=== PATIENT | female | born 1940 | race African-American/Black ===

== ENCOUNTER 2016-12-31 17:45 | Emergency (ER) | payer OTHER, MEDICAID ==
[~2016-12-31] VITALS: Ht 157.5 cm; Wt 100.0 kg
[~2016-12-31 17:45] MED LIST: AMLO10TA80 PO; ASPI-1159 PO; ATEN50TA PO; AZIT250T6 PO; OMEP20TA2 PO; P20 PO
[2016-12-31] MEDS ORDERED: IPRATROPIUM BROMIDE (0.02%) 0.5MG/2.5ML NEB HHN STA (19:36)
[2016-12-31] MEDS ORDERED: PREDNISONE 20MG TABLET PO STA (19:36)
[2016-12-31 20:38] LABS: BASOPHILS % 0.7 % (0.0-2.0); EOSINOPHILS % 3.1 % (0.0-5.0); HEMATOCRIT. 30.8 % (36.0-48.0); HEMOGLOBIN. 9.9 g/dL (12.0-16.0); LYMPHOCYTES % 11.7 % (20.0-50.0); MEAN CORPUSCULAR HEMOGLOBIN 24.8 pg (28.0-32.0); MEAN CORPUSCULAR VOLUME 77.1 fL (81.0-99.0); MEAN PLATELET VOLUME 8.7 fl (7.4-10.4); MONOCYTES % 6.4 % (2.0-8.0); NEUTROPHILS % 78.1 % (40.0-76.0); PLATELET 315 x1000/uL (130-400); PROTHROMBIN TIME 10.6 sec (9.4-11.6); RED BLOOD CELL COUNT 3.99 mill/uL (4.2-5.4); RED CELL DISTRIBUTION WIDTH 16.7 % (11.6-14.6)
[2016-12-31 20:45] LABS: CARBON DIOXIDE 31 mEq/L (21-32); CHLORIDE 102 mEq/L (98-107)
[2016-12-31 20:48] LABS: TROPONIN I < 0.02 ng/mL (0.00-0.04)
[2016-12-31] MEDS: ALBUTEROL (0.083%) 2.5MG/3ML NEB HHN SCH ×3 (22:10→23:05)
[2016-12-31 23:24] VITALS: BP 173/100
[2016-12-31] MEDS ORDERED: MAGNESIUM/ALUMINUM HYDROXIDE/SIMETHICONE 30ML UDC PO STA (23:28)
[2016-12-31] MEDS ORDERED: FAMOTIDINE 20MG TABLET PO ONE (23:30)
[2017-02-08] MEDS ORDERED: LEVO500T2 PO (19:03)
== END 2017-01-01 00:03 | disposition home or self-care (01) ==
LOC: ER 21:11
DX: I13.0 Hypertensive heart and chronic kidney disease with heart failure and stage 1 through stage 4 chronic kidney disease, or unspecified chronic kidney disease (principal); E11.649 Type 2 diabetes mellitus with hypoglycemia without coma; R60.0 Localized edema; E11.22 Type 2 diabetes mellitus with diabetic chronic kidney disease; G62.9 Polyneuropathy, unspecified; K21.9 Gastro-esophageal reflux disease without esophagitis; J44.9 Chronic obstructive pulmonary disease, unspecified; F41.9 Anxiety disorder, unspecified; M19.90 Unspecified osteoarthritis, unspecified site; G47.33 Obstructive sleep apnea (adult) (pediatric); D72.829 Elevated white blood cell count, unspecified; N18.9 Chronic kidney disease, unspecified; R91.1 Solitary pulmonary nodule; Z79.82 Long term (current) use of aspirin; Z88.8 Allergy status to other drugs, medicaments and biological substances
CPT/HCPCS: 36415; 71010; 80053; 82962; 83880; 84484; 85025; 85610; 93005; 94640; 99285; J7512; J7611

== ENCOUNTER 2017-01-04 03:40 | Inpatient (IN) | payer OTHER, MEDICAID ==
[2017-01-04] VITALS (8 sets, daily range): BP systolic 139–150; BP diastolic 64–80
[~2017-01-04] VITALS: Ht 162.6 cm; Wt 111.6 kg
[2017-01-04] MEDS ORDERED: ONDANSETRON HCL 4MG/2ML VIAL IV STA (03:47)
[2017-01-04] MEDS ORDERED: FUROSEMIDE 40MG/4ML VIAL IV ONE (04:00)
[2017-01-04] MEDS ORDERED: NITROGLYCERIN OINT 1GM/INCH UDPKT TD ONE (04:00)
[2017-01-04 04:25] LABS: PROTHROMBIN TIME 10.6 sec (9.4-11.6)
[2017-01-04 04:26] LABS: HEMATOCRIT. 30.4 % (36.0-48.0); HEMOGLOBIN. 9.5 g/dL (12.0-16.0); MEAN CORPUSCULAR HEMOGLOBIN 24.2 pg (28.0-32.0); MEAN CORPUSCULAR VOLUME 77.1 fL (81.0-99.0); MEAN PLATELET VOLUME 8.4 fl (7.4-10.4); PLATELET 371 x1000/uL (130-400); RED BLOOD CELL COUNT 3.94 mill/uL (4.2-5.4); RED CELL DISTRIBUTION WIDTH 16.7 % (11.6-14.6)
[2017-01-04 04:34] LABS: CARBON DIOXIDE 32 mEq/L (21-32); CHLORIDE 101 mEq/L (98-107); TROPONIN I < 0.02 ng/mL (0.00-0.04)
[2017-01-04 04:48] LABS: BG BASE EXCESS 1.6 mmol/L (-2.0-2.0); BG BILEVEL POS AIRWAY PRESSURE 15/6; BG CARBOXYHEMOGLOBIN 0.4 % (0.5-1.5); BG DEOXYHEMOGLOBIN 4.2 % (0.0-5.0); BG FRACTION INSPIRED OXYGEN 50; BG METHEMOGLOBIN 0.3 % (0.0-1.5); BG OXYGEN SATURATION 95.8 % (92.0-98.5); BG OXYHEMOGLOBIN 95.1 % (94.0-97.0); BG PCO2 69.4 mmHg (35.0-45.0); BG PH 7.254 (7.350-7.450); BG PO2 91.5 mmHg (75.0-100.0); BG SAMPLE SITE RIGHT RADIAL; BG TOTAL HEMOGLOBIN 10.4 g/dL (12.0-18.0); BG VENT MODE MASK - BIPAP; BG VENT RATE 18 set
[2017-01-04 05:27] LABS: PLATELET ESTIMATE NORMAL
[2017-01-04] MEDS ORDERED: PIPERACILLIN/TAZ 3.375G PREMIX 50 ML IV SCH ×2 (07:15→13:00)
[2017-01-04] MEDS ORDERED: IPRATROPIUM/ALBUTEROL 0.5-3(2.5)MG/3ML NEB INH PRN (13:00)
[2017-01-04] MEDS ORDERED: METHYLPREDNISOLONE SOD SUCC 40 MG/ML VIAL IV SCH (13:00)
[2017-01-04] MEDS ORDERED: ACETAMINOPHEN 325MG TABLET PO PRN (13:00)
[2017-01-04] MEDS ORDERED: VANCOMYCIN 1 G PREMIX 200 ML IV SCH (13:00)
[2017-01-04] MEDS: FUROSEMIDE 40MG/4ML VIAL IV SCH (14:12)
[2017-01-04] MEDS: ENOXAPARIN 40MG/0.4ML SYR SUBCUT SCH (14:12)
[2017-01-04] MEDS ORDERED: VANCOMYCIN 2,000 MG in DEXT 5% WATER 500 ML IV SCH (15:00)
[2017-01-04] MEDS: PIPERACILLIN/TAZ 3.375G PREMIX 50 ML IV SCH ×2 (15:27→21:14)
[2017-01-04 16:17] LABS: CREATINE KINASE 132 IU/L (26-192); TROPONIN I < 0.02 ng/mL (0.00-0.04)
[2017-01-04 16:28] LABS: BG BASE EXCESS 4.1 mmol/L (-2.0-2.0); BG BILEVEL POS AIRWAY PRESSURE ST=15/6; BG CARBOXYHEMOGLOBIN 0.3 % (0.5-1.5); BG FRACTION INSPIRED OXYGEN 50; BG METHEMOGLOBIN 0.2 % (0.0-1.5); BG OXYHEMOGLOBIN 95.5 % (94.0-97.0); BG PCO2 68.8 mmHg (35.0-45.0); BG PH 7.286 (7.350-7.450); BG PO2 87.7 mmHg (75.0-100.0); BG PRESSURE SUPPORT 9; BG SAMPLE SITE RIGHT RADIAL; BG VENT MODE MASK - BIPAP; BG VENT RATE 18 set
[2017-01-04] MEDS: METHYLPREDNISOLONE SOD SUCC 40 MG/ML VIAL IV SCH (21:14)
[2017-01-04 23:08] LABS: CREATINE KINASE 116 IU/L (26-192); TROPONIN I < 0.02 ng/mL (0.00-0.04)
[2017-01-05] VITALS (15 sets, daily range): BP systolic 125–164; BP diastolic 55–79
[2017-01-05] MEDS: HYDROCODONE/ACETAMINOPHEN 5/325MG TABLET PO PRN (00:09)
[2017-01-05] MEDS: PIPERACILLIN/TAZ 3.375G PREMIX 50 ML IV SCH ×2 (05:59→14:59)
[2017-01-05 06:23] LABS: CARBON DIOXIDE 28 mEq/L (21-32); CHLORIDE 95 mEq/L (98-107); HDL CHOLESTEROL 47 mg/dL (40-59); LDL CHOLESTEROL 69 mg/dL (5-100)
[2017-01-05] MEDS: FUROSEMIDE 40MG/4ML VIAL IV SCH (08:22)
[2017-01-05] MEDS: METHYLPREDNISOLONE SOD SUCC 40 MG/ML VIAL IV SCH ×2 (08:22→20:42)
[2017-01-05] MEDS: ENOXAPARIN 40MG/0.4ML SYR SUBCUT SCH (08:23)
[2017-01-05 08:40] LABS: HEMATOCRIT. 27.1 % (36.0-48.0); HEMOGLOBIN. 8.5 g/dL (12.0-16.0); MEAN CORPUSCULAR HEMOGLOBIN 24.3 pg (28.0-32.0); MEAN CORPUSCULAR VOLUME 77.8 fL (81.0-99.0); MEAN PLATELET VOLUME 8.7 fl (7.4-10.4); RED BLOOD CELL COUNT 3.49 mill/uL (4.2-5.4); RED CELL DISTRIBUTION WIDTH 16.9 % (11.6-14.6)
[2017-01-05 08:46] LABS: PLATELET 298 x1000/uL (130-400)
[2017-01-05] MEDS ORDERED: VANCOMYCIN 750 MG PREMIX 150 ML IV SCH (09:00)
[2017-01-05 10:24] LABS: PLATELET ESTIMATE NORMAL
[2017-01-05] MEDS: FUROSEMIDE 40MG/4ML VIAL IVP SCH (16:25)
[2017-01-05] MEDS: LEVOFLOXACIN 250MG PREMIX 50 ML IV SCH (16:27)
[2017-01-05] MEDS ORDERED: DEXTROSE 50% WATER 50ML SYRINGE IV PRN (18:00)
[2017-01-05] MEDS: INSULIN LISPRO 100 UNITS/ML SUBCUT SCH ×2 (18:10→20:43)
[2017-01-05] MEDS: BLOOD SUGAR DIAGNOSTIC STRIP TEST SCH (20:42)
[2017-01-05] MEDS ORDERED: BLOOD SUGAR DIAGNOSTIC STRIP TEST SCH (21:00)
[2017-01-05] MEDS ORDERED: BLOOD SUGAR DIAGNOSTIC STRIP TEST ONE (21:00)
[2017-01-05] MEDS: PIPERACILLIN/TAZ 2.25G PREMIX 50 ML IV SCH (21:45)
[2017-01-06] VITALS (16 sets, daily range): BP systolic 142–175; BP diastolic 59–84
[2017-01-06] MEDS: PIPERACILLIN/TAZ 2.25G PREMIX 50 ML IV SCH ×3 (05:24→21:31)
[2017-01-06 05:57] LABS: CARBON DIOXIDE 33 mEq/L (21-32); CHLORIDE 96 mEq/L (98-107)
[2017-01-06 06:16] LABS: HEMATOCRIT. 26.5 % (36.0-48.0); HEMOGLOBIN. 8.3 g/dL (12.0-16.0); MEAN CORPUSCULAR HEMOGLOBIN 24.3 pg (28.0-32.0); MEAN CORPUSCULAR VOLUME 77.7 fL (81.0-99.0); MEAN PLATELET VOLUME 8.9 fl (7.4-10.4); PLATELET 300 x1000/uL (130-400); RED BLOOD CELL COUNT 3.41 mill/uL (4.2-5.4); RED CELL DISTRIBUTION WIDTH 16.7 % (11.6-14.6)
[2017-01-06] MEDS: BLOOD SUGAR DIAGNOSTIC STRIP TEST SCH ×4 (07:49→21:31)
[2017-01-06] MEDS: ENOXAPARIN 40MG/0.4ML SYR SUBCUT SCH (07:58)
[2017-01-06] MEDS: FUROSEMIDE 40MG/4ML VIAL IVP SCH (07:58)
[2017-01-06] MEDS: METHYLPREDNISOLONE SOD SUCC 40 MG/ML VIAL IV SCH ×2 (07:59→17:47)
[2017-01-06] MEDS: INSULIN LISPRO 100 UNITS/ML SUBCUT SCH ×4 (08:01→21:43)
[2017-01-06] MEDS ORDERED: DEXTROSE 50% WATER 50ML SYRINGE IV PRN (09:15)
[2017-01-06] MEDS ORDERED: SODIUM POLYSTYRENE SULFONATE 15 G/60 ML BOT PO NR (09:15)
[2017-01-06] MEDS ORDERED: VANCOMYCIN 1 G PREMIX 200 ML IV NR (10:00)
[2017-01-06] MEDS: CLONIDINE 0.1MG TABLET PO PRN ×3 (10:15→21:30)
[2017-01-06] MEDS: INSULIN DETEMIR UD 100 UNITS/ML SYR SUBCUT SCH (10:16)
[2017-01-06] MEDS ORDERED: BLOOD SUGAR DIAGNOSTIC STRIP TEST SCH (12:30)
[2017-01-06 13:40] LABS: PLATELET ESTIMATE NORMAL
[2017-01-06] MEDS: LEVOFLOXACIN 250MG PREMIX 50 ML IV SCH (16:00)
[2017-01-07] VITALS (12 sets, daily range): BP systolic 155–197; BP diastolic 70–97
[2017-01-07] MEDS: HYDROCODONE/ACETAMINOPHEN 5/325MG TABLET PO PRN (01:55)
[2017-01-07] MEDS: PIPERACILLIN/TAZ 2.25G PREMIX 50 ML IV SCH ×3 (03:09→14:58)
[2017-01-07] MEDS: CLONIDINE 0.1MG TABLET PO PRN (03:31)
[2017-01-07] MEDS: BLOOD SUGAR DIAGNOSTIC STRIP TEST SCH ×3 (07:30→17:15)
[2017-01-07 07:34] LABS: HEMATOCRIT. 29.8 % (36.0-48.0); HEMOGLOBIN. 9.4 g/dL (12.0-16.0); MEAN CORPUSCULAR HEMOGLOBIN 24.7 pg (28.0-32.0); MEAN PLATELET VOLUME 8.5 fl (7.4-10.4); PLATELET 298 x1000/uL (130-400); RED BLOOD CELL COUNT 3.82 mill/uL (4.2-5.4); RED CELL DISTRIBUTION WIDTH 16.5 % (11.6-14.6)
[2017-01-07] MEDS: ENOXAPARIN 40MG/0.4ML SYR SUBCUT SCH (08:23)
[2017-01-07] MEDS: METHYLPREDNISOLONE SOD SUCC 40 MG/ML VIAL IV SCH (08:23)
[2017-01-07] MEDS: INSULIN LISPRO 100 UNITS/ML SUBCUT SCH ×3 (08:25→17:15)
[2017-01-07] MEDS ORDERED: FUROSEMIDE 40MG/4ML VIAL IVP SCH (09:00)
[2017-01-07] MEDS: INSULIN DETEMIR UD 100 UNITS/ML SYR SUBCUT SCH (10:51)
[2017-01-07 16:22] LABS: PLATELET ESTIMATE NORMAL
[2017-01-07] MEDS: LEVOFLOXACIN 250MG PREMIX 50 ML IV SCH (16:32)
[2017-01-07] MEDS ORDERED: FUROSEMIDE 40MG/4ML VIAL IVP NR (17:45)
[2017-02-08] MEDS ORDERED: LEVO500T2 PO (19:03)
== END 2017-01-07 21:48 | disposition home or self-care (01) | DRG 291 ==
LOC: ER 03:44 → 5EST 05:25 → EDBEDREQ 05:55 → EDBEDREQSVC 07:52 → ENRESERV 08:04
PROVIDERS: ADMIT Internal Medicine; ATTEND Internal Medicine
PROC: 30233N1 Transfusion of Nonautologous Red Blood Cells into Peripheral Vein, Percutaneous Approach (ICD-10-PCS; principal; 2017-01-04)
PROC: 5A09457 Assistance with Respiratory Ventilation, 24-96 Consecutive Hours, Continuous Positive Airway Pressure (ICD-10-PCS; 2017-01-04)
DX: I13.0 Hypertensive heart and chronic kidney disease with heart failure and stage 1 through stage 4 chronic kidney disease, or unspecified chronic kidney disease (principal); J96.90 Respiratory failure, unspecified, unspecified whether with hypoxia or hypercapnia; J18.9 Pneumonia, unspecified organism; E11.22 Type 2 diabetes mellitus with diabetic chronic kidney disease; N18.3 Chronic kidney disease, stage 3 (moderate); J44.0 Chronic obstructive pulmonary disease with (acute) lower respiratory infection; Z68.41 Body mass index [BMI] 40.0-44.9, adult; J44.1 Chronic obstructive pulmonary disease with (acute) exacerbation; I50.9 Heart failure, unspecified; E66.9 Obesity, unspecified; E78.00 Pure hypercholesterolemia, unspecified; M19.90 Unspecified osteoarthritis, unspecified site; Z88.8 Allergy status to other drugs, medicaments and biological substances; Z79.82 Long term (current) use of aspirin; Z79.899 Other long term (current) drug therapy
CPT/HCPCS: 36415; 36600; 71010; 80048; 80053; 80061; 80202; 82375; 82550; 82805; 82962; 83605; 83880; 84439; 84443; 84484; 85025; 85044; 85610; 86850; 86900; 86920; 87040; 93005; 93306; 94660; 96365; 96375; 99291; J1650; J1815; J1940; J1956; J2405; J2543; J2920; J3370; J7050; J7060; J7620; P9016; A4315

== ENCOUNTER 2018-03-31 09:08 | Inpatient (IN) | payer OTHER, MEDICAID ==
[~2018-03-31] VITALS: Ht 158.8 cm; Wt 97.1 kg
[~2018-03-31 09:08] MED LIST changes: -ATEN50TA PO; +ATOR20TA65 PO; -AZIT250T6 PO; +HYDR-4134 PO; +HYDR-519 PO; -P20 PO
[2018-03-31] MEDS ORDERED: ALBUTEROL (0.083%) 2.5MG/3ML NEB HHN STA (09:39)
[2018-03-31] MEDS ORDERED: IPRATROPIUM BROMIDE (0.02%) 0.5MG/2.5ML NEB HHN STA (09:39)
[2018-03-31] MEDS ORDERED: METHYLPREDNISOLONE SOD SUCC 125 MG/2 ML VIAL IV STA (09:39)
[2018-03-31] MEDS ORDERED: MAGNESIUM 2 G PREMIX 50 ML IV ONE (09:45)
[2018-03-31 09:56] LABS: BASOPHILS % 0.7 % (0.0-2.0); EOSINOPHILS % 2.8 % (0.0-5.0); HEMATOCRIT. 30.7 % (36.0-48.0); HEMOGLOBIN. 9.6 g/dL (12.0-16.0); LYMPHOCYTES % 18.2 % (20.0-50.0); MEAN CORPUSCULAR HEMOGLOBIN 25.2 pg (28.0-32.0); MEAN CORPUSCULAR VOLUME 80.2 fL (81.0-99.0); MEAN PLATELET VOLUME 9.5 fl (7.4-10.4); MONOCYTES % 6.3 % (2.0-8.0); PLATELET 316 x1000/uL (130-400); RED BLOOD CELL COUNT 3.83 mill/uL (4.2-5.4); RED CELL DISTRIBUTION WIDTH 16.5 % (11.6-14.6)
[2018-03-31 09:57] LABS: CHLORIDE 103 mEq/L (98-107)
[2018-03-31] MEDS ORDERED: FUROSEMIDE 40MG/4ML VIAL IVP ONE (11:00)
[2018-03-31 12:15] VITALS: BP 157/62
[2018-03-31] MEDS ORDERED: IPRATROPIUM/ALBUTEROL 0.5-3(2.5)MG/3ML NEB INH PRN (12:30)
[2018-03-31] MEDS ORDERED: ONDANSETRON HCL 4MG/2ML INJ IV PRN (12:30)
[2018-03-31] MEDS ORDERED: ACETAMINOPHEN 325MG TABLET PO PRN (12:30)
[2018-03-31] MEDS ORDERED: DOCU-138 MT (13:01)
[2018-03-31] MEDS ORDERED: INSNPH SUBCUT ×2 (13:12)
[2018-03-31] MEDS: AMLODIPINE 10MG TABLET PO SCH (13:39)
[2018-03-31] MEDS: METHYLPREDNISOLONE SOD SUCC 40 MG/ML VIAL IV SCH ×2 (13:39→21:38)
[2018-03-31] MEDS: FUROSEMIDE 40MG/4ML VIAL IV SCH (13:39)
[2018-03-31] MEDS: HYDROCODONE/ACETAMINOPHEN 5/325MG TABLET PO PRN (13:39)
[2018-03-31] MEDS: ASPIRIN 81MG TABLET PO SCH (13:39)
[2018-03-31] MEDS: ENOXAPARIN 40MG/0.4ML SYR SUBCUT SCH (13:40)
[2018-03-31 14:00] VITALS: BP 172/66
[2018-03-31] MEDS ORDERED: LEVOFLOXACIN 500MG PREMIX 100 ML IV SCH (14:00)
[2018-03-31] MEDS: HYDRALAZINE HCL 50MG TABLET PO SCH ×2 (14:50→16:55)
[2018-03-31 16:00] VITALS: BP 155/63
[2018-03-31] MEDS ORDERED: DEXTROSE 50% WATER 50ML SYRINGE IV PRN (16:00)
[2018-03-31] MEDS: DOCUSATE SODIUM 100MG CAPSULE PO SCH (16:54)
[2018-03-31] MEDS: BLOOD SUGAR DIAGNOSTIC STRIP TEST SCH ×2 (16:55→20:47)
[2018-03-31] MEDS: INSULIN LISPRO 100 UNITS/ML SUBCUT SCH ×2 (17:16→20:54)
[2018-03-31 18:00] VITALS: BP 157/57
[2018-03-31] MEDS: CLONIDINE 0.1MG TABLET PO PRN ×2 (18:21→21:39)
[2018-03-31 20:00] VITALS: BP 154/58
[2018-03-31 20:27] LABS: CREATINE KINASE MB FRACTION 1.6 ng/mL (0.5-3.6)
[2018-03-31 20:30] LABS: CREATINE KINASE 112 IU/L (26-192); CREATINE KINASE MB FRACTION 1.6 ng/mL (0.5-3.6)
[2018-03-31] MEDS: ATORVASTATIN CALCIUM 20MG TABLET PO SCH (20:47)
[2018-03-31 22:00] VITALS: BP 173/63
[2018-04-01] VITALS (12 sets, daily range): BP systolic 145–172; BP diastolic 55–78
[2018-04-01] MEDS: CLONIDINE 0.1MG TABLET PO PRN ×2 (04:29→21:46)
[2018-04-01] MEDS: METHYLPREDNISOLONE SOD SUCC 40 MG/ML VIAL IV SCH ×3 (06:11→21:48)
[2018-04-01 06:35] LABS: HEMATOCRIT. 25.6 % (36.0-48.0); HEMOGLOBIN. 8.4 g/dL (12.0-16.0); MEAN CORPUSCULAR VOLUME 79.7 fL (81.0-99.0); MEAN PLATELET VOLUME 8.9 fl (7.4-10.4); PLATELET 270 x1000/uL (130-400); RED BLOOD CELL COUNT 3.21 mill/uL (4.2-5.4)
[2018-04-01 07:12] LABS: CHLORIDE 99 mEq/L (98-107)
[2018-04-01 07:30] LABS: LDL CHOLESTEROL 50 mg/dL (5-100)
[2018-04-01 07:32] LABS: HDL CHOLESTEROL 55 mg/dL (40-59); T4 FREE 0.82 ng/dL (0.76-1.46)
[2018-04-01] MEDS: BLOOD SUGAR DIAGNOSTIC STRIP TEST SCH ×4 (07:57→21:47)
[2018-04-01] MEDS: THIAMINE HCL 100MG TABLET PO SCH (08:39)
[2018-04-01] MEDS: ASPIRIN 81MG TABLET PO SCH (08:39)
[2018-04-01] MEDS: AMLODIPINE 10MG TABLET PO SCH (08:39)
[2018-04-01] MEDS: HYDRALAZINE HCL 50MG TABLET PO SCH ×3 (08:39→17:31)
[2018-04-01] MEDS: FUROSEMIDE 40MG/4ML VIAL IV SCH (08:39)
[2018-04-01] MEDS: DOCUSATE SODIUM 100MG CAPSULE PO SCH ×2 (08:39→17:00)
[2018-04-01] MEDS: INSULIN LISPRO 100 UNITS/ML SUBCUT SCH ×4 (08:41→22:07)
[2018-04-01 10:45] LABS: PLATELET ESTIMATE NORMAL
[2018-04-01] MEDS ORDERED: HYDRALAZINE HCL 50MG TABLET PO SCH (13:00)
[2018-04-01] MEDS ORDERED: LEVOFLOXACIN 250MG PREMIX 50 ML IV SCH (14:00)
[2018-04-01] MEDS: ENOXAPARIN 40MG/0.4ML SYR SUBCUT SCH (14:02)
[2018-04-01] MEDS: ATORVASTATIN CALCIUM 20MG TABLET PO SCH (21:46)
[2018-04-01] MEDS: ENOXAPARIN 30MG/0.3ML SYR SUBCUT SCH (21:48)
[2018-04-02] VITALS (9 sets, daily range): BP systolic 152–176; BP diastolic 46–101
[2018-04-02] MEDS: METHYLPREDNISOLONE SOD SUCC 40 MG/ML VIAL IV SCH ×2 (05:35→13:00)
[2018-04-02] MEDS: HYDROCODONE/ACETAMINOPHEN 5/325MG TABLET PO PRN ×2 (05:36→14:25)
[2018-04-02] MEDS: BLOOD SUGAR DIAGNOSTIC STRIP TEST SCH ×2 (07:30→12:52)
[2018-04-02] MEDS: ENOXAPARIN 30MG/0.3ML SYR SUBCUT SCH (09:16)
[2018-04-02] MEDS: AMLODIPINE 10MG TABLET PO SCH (09:18)
[2018-04-02] MEDS: DOCUSATE SODIUM 100MG CAPSULE PO SCH (09:19)
[2018-04-02] MEDS: ASPIRIN 81MG TABLET PO SCH (09:19)
[2018-04-02] MEDS: HYDRALAZINE HCL 50MG TABLET PO SCH ×2 (09:19→12:54)
[2018-04-02] MEDS: THIAMINE HCL 100MG TABLET PO SCH (09:19)
[2018-04-02] MEDS: INSULIN LISPRO 100 UNITS/ML SUBCUT SCH ×2 (09:24→12:55)
[2018-04-02] MEDS: FUROSEMIDE 40MG/4ML VIAL IV SCH (09:52)
[2018-04-02] MEDS: CLONIDINE 0.1MG TABLET PO PRN (14:37)
[2018-04-03] MEDS ORDERED: LEVOFLOXACIN 500MG PREMIX 100 ML IV SCH (09:00)
== END 2018-04-02 16:34 | disposition home or self-care (01) | DRG 190 ==
LOC: ER 09:08 → 5EST 11:04 → EDBEDREQTM 11:09 → EDBEDREQ 11:09 → ENRESERV 11:19 → ER 12:26
PROVIDERS: ADMIT Internal Medicine; ATTEND Internal Medicine
PROC: 5A09457 Assistance with Respiratory Ventilation, 24-96 Consecutive Hours, Continuous Positive Airway Pressure (ICD-10-PCS; principal; 2018-03-31)
DX: J44.1 Chronic obstructive pulmonary disease with (acute) exacerbation (principal); J96.90 Respiratory failure, unspecified, unspecified whether with hypoxia or hypercapnia; I50.30 Unspecified diastolic (congestive) heart failure; I11.0 Hypertensive heart disease with heart failure; E11.9 Type 2 diabetes mellitus without complications; Z99.81 Dependence on supplemental oxygen; E78.5 Hyperlipidemia, unspecified
CPT/HCPCS: 36415; 71045; 80061; 82550; 82553; 82962; 83880; 84439; 84443; 84484; 87804; 93005; 93306; 93970; 94660; 96365; 96366; 96375; 97116; 97162; 97166; 97530; 97535; 99291; J1650; J1815; J1940; J1956; J2920; J2930; J3475; J7050; J7611

== ENCOUNTER 2018-05-09 13:21 | Emergency (ER) | payer OTHER, MEDICAID ==
[~2018-05-09] VITALS: Ht 167.6 cm; Wt 106.0 kg
[~2018-05-09 13:21] MED LIST changes: +DOCU-138 MT; +INSNPH SUBCUT; -OMEP20TA2 PO
[2018-05-09 14:27] LABS: HEMATOCRIT. 33.5 % (36.0-48.0); HEMOGLOBIN. 10.6 g/dL (12.0-16.0); LYMPHOCYTES % 11.8 % (20.0-50.0); MEAN CORPUSCULAR HEMOGLOBIN 25.5 pg (28.0-32.0); MEAN CORPUSCULAR VOLUME 80.2 fL (81.0-99.0); MEAN PLATELET VOLUME 8.6 fl (7.4-10.4); MONOCYTES % 5.5 % (2.0-8.0); NEUTROPHILS % 80.7 % (40.0-76.0); PLATELET 410 x1000/uL (130-400); RED BLOOD CELL COUNT 4.17 mill/uL (4.2-5.4)
[2018-05-09] MEDS ORDERED: CLONIDINE 0.1MG TABLET PO ONE (14:30)
[2018-05-09 14:32] LABS: CHLORIDE 101 mEq/L (98-107)
[2018-05-09 15:54] LABS: PARTIAL THROMBOPLASTIN TIME 27.6 sec (23.4-31.0)
[2018-05-09 18:30] VITALS: BP 171/85
== END 2018-05-09 19:10 | disposition left against medical advice (07) ==
LOC: ER 13:21 → ENRESERV 14:30 → CANRESERV 14:30 → CANBEDREQ 15:32 → ER 19:10
DX: I11.0 Hypertensive heart disease with heart failure (principal); I50.9 Heart failure, unspecified; R07.9 Chest pain, unspecified; J44.9 Chronic obstructive pulmonary disease, unspecified; E11.9 Type 2 diabetes mellitus without complications; Z88.8 Allergy status to other drugs, medicaments and biological substances; Z79.899 Other long term (current) drug therapy; Z87.891 Personal history of nicotine dependence
CPT/HCPCS: 36415; 71045; 83880; 84484; 93005; 99284

== ENCOUNTER 2018-06-25 12:40 | Inpatient (IN) | payer OTHER, MEDICAID ==
[~2018-06-25] VITALS: Ht 157.5 cm; Wt 97.5 kg
[2018-06-25 13:49] LABS: HEMATOCRIT. 31.8 % (36.0-48.0); HEMOGLOBIN. 9.8 g/dL (12.0-16.0); MEAN CORPUSCULAR HEMOGLOBIN 23.7 pg (28.0-32.0); MEAN CORPUSCULAR VOLUME 76.9 fL (81.0-99.0); MEAN PLATELET VOLUME 8.1 fl (7.4-10.4); PLATELET 338 x1000/uL (130-400); RED BLOOD CELL COUNT 4.14 mill/uL (4.2-5.4); RED CELL DISTRIBUTION WIDTH 17.1 % (11.6-14.6)
[2018-06-25 13:52] LABS: CHLORIDE 102 mEq/L (98-107)
[2018-06-25 14:02] LABS: PLATELET ESTIMATE NORMAL
[2018-06-25] MEDS ORDERED: ALBUTEROL (0.083%) 2.5MG/3ML NEB HHN STA (14:28)
[2018-06-25] MEDS ORDERED: IPRATROPIUM BROMIDE (0.02%) 0.5MG/2.5ML NEB HHN STA (14:28)
[2018-06-25] MEDS ORDERED: METHYLPREDNISOLONE SOD SUCC 125 MG/2 ML VIAL IV STA (14:28)
[2018-06-25] MEDS ORDERED: CEFTRIAXONE 1 G PREMIX 50 ML IV ONE (14:30)
[2018-06-25] MEDS ORDERED: AZITHROMYCIN 500 MG in DEXT 5% WATER 250 ML IV SCH (14:30)
[2018-06-25] MEDS ORDERED: FUROSEMIDE 20MG/2ML VIAL IVP ONE (15:00)
[2018-06-25] MEDS ORDERED: NITROGLYCERIN OINT 1GM/INCH UDPKT TD ONE (15:00)
[2018-06-25] MEDS ORDERED: IPRATROPIUM/ALBUTEROL 0.5-3(2.5)MG/3ML NEB INH PRN (16:45)
[2018-06-25] MEDS ORDERED: ACETAMINOPHEN 650MG/20.3ML UDC GT PRN (16:45)
[2018-06-25] MEDS ORDERED: HYDROCODONE/ACETAMINOPHEN 5/325MG TABLET PO PRN (16:45)
[2018-06-25] MEDS ORDERED: ONDANSETRON HCL 4MG/2ML INJ IV PRN (16:45)
[2018-06-25] MEDS ORDERED: ENOXAPARIN 40MG/0.4ML SYR SUBCUT NR (17:45)
[2018-06-25] MEDS ORDERED: LEVOFLOXACIN 500MG PREMIX 100 ML IV SCH (20:15)
[2018-06-25] MEDS: CLONIDINE 0.1MG TABLET PO PRN (22:08)
[2018-06-25] MEDS ORDERED: INSULIN LISPRO 100 UNITS/ML SUBCUT NR (23:15)
[2018-06-26 00:15] VITALS: BP 129/81
[2018-06-26] MEDS ORDERED: DEXTROSE 50% WATER 50ML SYRINGE IV PRN (01:00)
[2018-06-26] MEDS: INSULIN LISPRO 100 UNITS/ML SUBCUT SCH ×4 (01:17→17:38)
[2018-06-26] MEDS ORDERED: BLOOD SUGAR DIAGNOSTIC STRIP TEST NR (01:45)
[2018-06-26 04:30] VITALS: BP 163/60
[2018-06-26] MEDS: CLONIDINE 0.1MG TABLET PO PRN ×2 (05:10→17:28)
[2018-06-26] MEDS: BLOOD SUGAR DIAGNOSTIC STRIP TEST SCH ×3 (05:23→18:01)
[2018-06-26 08:00] VITALS: BP 104/56
[2018-06-26 08:59] LABS: HEMATOCRIT. 28.3 % (36.0-48.0); HEMOGLOBIN. 8.9 g/dL (12.0-16.0); MEAN CORPUSCULAR HEMOGLOBIN 24.2 pg (28.0-32.0); MEAN CORPUSCULAR VOLUME 76.9 fL (81.0-99.0); MEAN PLATELET VOLUME 8.9 fl (7.4-10.4); PLATELET 315 x1000/uL (130-400); RED BLOOD CELL COUNT 3.68 mill/uL (4.2-5.4); RED CELL DISTRIBUTION WIDTH 17.1 % (11.6-14.6)
[2018-06-26] MEDS ORDERED: ENOXAPARIN 30MG/0.3ML SYR SUBCUT SCH (09:00)
[2018-06-26 09:27] LABS: CHLORIDE 99 mEq/L (98-107)
[2018-06-26 09:38] LABS: HDL CHOLESTEROL 79 mg/dL (40-59); LDL CHOLESTEROL 55 mg/dL (5-100); T4 FREE 0.71 ng/dL (0.76-1.46)
[2018-06-26 11:34] LABS: BG BASE EXCESS 3.8 mmol/L (-2.0-2.0); BG CARBOXYHEMOGLOBIN 0.1 % (0.5-1.5); BG DEOXYHEMOGLOBIN 8.5 % (0.0-5.0); BG HCO3 ACT 29.4 mmol/L (22.0-26.0); BG METHEMOGLOBIN 0.2 % (0.0-1.5); BG OXYGEN SATURATION 91.5 % (92.0-98.5); BG OXYHEMOGLOBIN 91.2 % (94.0-97.0); BG PCO2 49.5 mmHg (35.0-45.0); BG PH 7.392 (7.350-7.450); BG PO2 62.6 mmHg (75.0-100.0); BG SAMPLE SITE RIGHT RADIAL; BG VENT MODE ROOM AIR
[2018-06-26 12:00] VITALS: BP 157/71
[2018-06-26 13:54] LABS: PLATELET ESTIMATE NORMAL
[2018-06-26] MEDS ORDERED: INSULIN GLARGINE UD 100 UNITS/ML SYR SUBCUT SCH (14:00)
[2018-06-26 16:00] VITALS: BP 169/68
[2018-06-26] MEDS ORDERED: AMLODIPINE 5MG TABLET PO SCH (16:00)
[2018-06-26 16:19] LABS: TOTAL IRON BINDING CAPACITY 292 ug/dL (250-450)
[2018-06-26 18:10] VITALS: BP_SYST 160; BP_SYST 169; BP_DIAS 58; BP_DIAS 68
[2018-06-26] MEDS ORDERED: LEVOFLOXACIN 500MG PREMIX 100 ML IV SCH (21:00)
[2018-06-26] MEDS ORDERED: LEVOFLOXACIN 250MG PREMIX 50 ML IV SCH (22:00)
== END 2018-06-26 19:10 | disposition home or self-care (01) | DRG 190 ==
LOC: ER 12:40 → 8WST 15:04 → EDBEDREQ 15:41 → ENRESERV 22:33
PROVIDERS: ADMIT Internal Medicine; ATTEND Internal Medicine
DX: J44.1 Chronic obstructive pulmonary disease with (acute) exacerbation (principal); I50.33 Acute on chronic diastolic (congestive) heart failure; N17.9 Acute kidney failure, unspecified; I11.0 Hypertensive heart disease with heart failure; D72.829 Elevated white blood cell count, unspecified; D64.9 Anemia, unspecified; E11.65 Type 2 diabetes mellitus with hyperglycemia; E78.00 Pure hypercholesterolemia, unspecified; E66.8 Other obesity; I27.20 Pulmonary hypertension, unspecified; T50.2X5A Adverse effect of carbonic-anhydrase inhibitors, benzothiadiazides and other diuretics, initial encounter; F19.90 Other psychoactive substance use, unspecified, uncomplicated; Y92.89 Other specified places as the place of occurrence of the external cause; Z99.81 Dependence on supplemental oxygen; Z68.39 Body mass index [BMI] 39.0-39.9, adult; I07.1 Rheumatic tricuspid insufficiency
CPT/HCPCS: 36415; 36600; 71045; 80061; 82375; 82550; 82805; 82962; 83036; 83540; 83550; 83880; 84439; 84443; 84484; 87804; 93005; 94640; 96365; 96367; 96375; 99291; J0456; J0696; J1650; J1815; J1940; J1956; J2930; J7060; J7611

== ENCOUNTER 2018-06-27 11:30 | Inpatient (IN) | payer OTHER, MEDICAID ==
[~2018-06-27] VITALS: Ht 165.1 cm; Wt 91.7 kg
[2018-06-27] MEDS ORDERED: METHYLPREDNISOLONE SOD SUCC 125 MG/2 ML VIAL IV STA (11:59)
[2018-06-27] MEDS ORDERED: IPRATROPIUM BROMIDE (0.02%) 0.5MG/2.5ML NEB HHN STA (11:59)
[2018-06-27] MEDS ORDERED: ALBUTEROL (0.083%) 2.5MG/3ML NEB HHN STA (11:59)
[2018-06-27] MEDS ORDERED: FUROSEMIDE 40MG/4ML VIAL IVP ONE (12:00)
[2018-06-27] MEDS ORDERED: MAGNESIUM 2 G PREMIX 50 ML IV ONE (12:00)
[2018-06-27 12:10] LABS: HEMATOCRIT. 30.2 % (36.0-48.0); HEMOGLOBIN. 9.1 g/dL (12.0-16.0); MEAN CORPUSCULAR HEMOGLOBIN 23.4 pg (28.0-32.0); MEAN CORPUSCULAR VOLUME 77.6 fL (81.0-99.0); MEAN PLATELET VOLUME 8.8 fl (7.4-10.4); PLATELET 352 x1000/uL (130-400); RED BLOOD CELL COUNT 3.89 mill/uL (4.2-5.4); RED CELL DISTRIBUTION WIDTH 17.1 % (11.6-14.6)
[2018-06-27 12:16] LABS: CHLORIDE 101 mEq/L (98-107)
[2018-06-27 12:20] LABS: PROTHROMBIN TIME 9.6 sec (9.1-11.1)
[2018-06-27 12:35] LABS: PLATELET ESTIMATE NORMAL
[2018-06-27] MEDS ORDERED: NITROGLYCERIN OINT 1GM/INCH UDPKT TD ONE (13:00)
[2018-06-27] MEDS ORDERED: HYDRALAZINE 20MG/ML VIAL IV ONE (13:00)
[2018-06-27 13:17] LABS: CLARITY URINE CLEAR (CLEAR); COLOR URINE YELLOW (YELLOW); KETONES URINE NEGATIVE (NEGATIVE); LEUKOCYTE ESTERASE URINE NEGATIVE (NEGATIVE); NITRITE URINE NEGATIVE (NEGATIVE); OCCULT BLOOD URINE NEGATIVE (NEGATIVE); PROTEIN URINE 2+ (NEGATIVE); SPECIFIC GRAVITY URINE 1.012 (1.005-1.030); UROBILINOGEN URINE 0.2 E.U./dL (0.2-1.0)
[2018-06-27] MEDS ORDERED: MORPHINE SULFATE 4 MG/ML CPJ (NOT FOR IM USE) IV SCH (14:00)
[2018-06-27] MEDS ORDERED: ACETAMINOPHEN 650MG SUPP PR PRN (16:30)
[2018-06-27] MEDS ORDERED: ONDANSETRON HCL 4MG/2ML INJ IV PRN (16:30)
[2018-06-27] MEDS ORDERED: IPRATROPIUM/ALBUTEROL 0.5-3(2.5)MG/3ML NEB INH PRN (16:30)
[2018-06-27] MEDS ORDERED: LORAZEPAM 0.5MG TABLET PO PRN (16:30)
[2018-06-27] MEDS ORDERED: GUAIFENESIN 200MG/10ML SUGAR FREE UDC PO PRN (16:30)
[2018-06-27] MEDS ORDERED: DOCUSATE SODIUM 100MG CAPSULE PO PRN (16:30)
[2018-06-27] MEDS ORDERED: LEVOFLOXACIN 500MG PREMIX 100 ML IV SCH (16:30)
[2018-06-27] MEDS ORDERED: NA PHOS,M-B/NA PHOS,DI-BA ENEMA 118ML PR PRN (16:30)
[2018-06-27] MEDS ORDERED: DEXTROSE 50% WATER 50ML SYRINGE IV PRN (16:30)
[2018-06-27] MEDS ORDERED: DIPHENHYDRAMINE 50MG/ML VIAL IV PRN (16:30)
[2018-06-27] MEDS ORDERED: LEVOFLOXACIN 500MG PREMIX 100 ML IV NR (17:15)
[2018-06-27] MEDS ORDERED: INSULIN GLARGINE UD 100 UNITS/ML SYR SUBCUT SCH (22:00)
[2018-06-27] MEDS ORDERED: HYDRALAZINE HCL 25MG TABLET PO NR (22:15)
[2018-06-27] MEDS ORDERED: METHYLPREDNISOLONE SOD SUCC 125 MG/2 ML VIAL IV NR (22:30)
[2018-06-27] MEDS ORDERED: DILTIAZEM HCL 30MG TABLET PO NR (23:45)
[2018-06-27] MEDS ORDERED: ATORVASTATIN CALCIUM 20MG TABLET PO NR (23:45)
[2018-06-28] VITALS (11 sets, daily range): BP systolic 151–190; BP diastolic 67–89
[2018-06-28 00:23] LABS: CREATINE KINASE MB FRACTION 3.1 ng/mL (0.5-3.6)
[2018-06-28] MEDS: CLONIDINE 0.1MG TABLET PO PRN ×2 (05:18→21:05)
[2018-06-28] MEDS ORDERED: METHYLPREDNISOLONE SOD SUCC 40 MG/ML VIAL IV SCH (06:00)
[2018-06-28] MEDS ORDERED: DILTIAZEM HCL 30MG TABLET PO SCH (06:00)
[2018-06-28] MEDS: BLOOD SUGAR DIAGNOSTIC STRIP TEST SCH ×4 (06:08→21:06)
[2018-06-28] MEDS: HYDROCODONE/ACETAMINOPHEN 5/325MG TABLET PO PRN (06:18)
[2018-06-28] MEDS: NITROGLYCERIN 0.4MG TABLET SL SL PRN ×2 (06:18→06:25)
[2018-06-28 06:22] LABS: *AMPHETAMINES SCREEN URINE NEGATIVE (NEGATIVE); *BARBITURATES SCREEN URINE NEGATIVE (NEGATIVE); *BENZODIAZEPINES SCREEN URINE NEGATIVE (NEGATIVE); *COCAINE SCREEN URINE NEGATIVE (NEGATIVE); CANNABINOID URINE SCREEN NEGATIVE (NEGATIVE); METHADONE URINE SCREEN NEGATIVE (NEGATIVE); OPIATES URINE SCREEN PRESUMTIVE POSITIVE (NEGATIVE); PHENCYCLIDINE URINE SCREEN NEGATIVE (NEGATIVE)
[2018-06-28 08:18] LABS: HEMATOCRIT. 27.2 % (36.0-48.0); HEMOGLOBIN. 8.6 g/dL (12.0-16.0); MEAN CORPUSCULAR HEMOGLOBIN 24.2 pg (28.0-32.0); MEAN PLATELET VOLUME 8.9 fl (7.4-10.4); PLATELET 292 x1000/uL (130-400); RED BLOOD CELL COUNT 3.54 mill/uL (4.2-5.4); RED CELL DISTRIBUTION WIDTH 17.2 % (11.6-14.6)
[2018-06-28 08:29] LABS: CHLORIDE 99 mEq/L (98-107)
[2018-06-28] MEDS: IPRATROPIUM/ALBUTEROL 0.5-3(2.5)MG/3ML NEB INH SCH ×4 (08:36→20:08)
[2018-06-28 08:37] LABS: LDL CHOLESTEROL 54 mg/dL (5-100)
[2018-06-28 08:38] LABS: CREATINE KINASE 105 IU/L (26-192)
[2018-06-28 08:41] LABS: CREATINE KINASE MB FRACTION 2.4 ng/mL (0.5-3.6)
[2018-06-28] MEDS: ASPIRIN 81MG TABLET PO SCH (08:44)
[2018-06-28] MEDS: DOCUSATE SODIUM 100MG CAPSULE PO SCH ×2 (08:44→18:04)
[2018-06-28] MEDS: INSULIN LISPRO 100 UNITS/ML SUBCUT SCH ×4 (08:45→21:06)
[2018-06-28 08:47] LABS: HDL CHOLESTEROL 73 mg/dL (40-59)
[2018-06-28] MEDS ORDERED: HYDRALAZINE HCL 25MG TABLET PO SCH (09:00)
[2018-06-28] MEDS ORDERED: INSULIN GLARGINE UD 100 UNITS/ML SYR SUBCUT SCH ×2 (10:00→10:30)
[2018-06-28] MEDS: INSULIN GLARGINE UD 100 UNITS/ML SYR SUBCUT SCH ×2 (11:10→21:08)
[2018-06-28 11:24] LABS: PLATELET ESTIMATE NORMAL
[2018-06-28] MEDS: DILTIAZEM HCL 30MG TABLET PO SCH ×3 (13:18→23:11)
[2018-06-28 14:20] LABS: BG BASE EXCESS 3.4 mmol/L (-2.0-2.0); BG CARBOXYHEMOGLOBIN 0.3 % (0.5-1.5); BG DEOXYHEMOGLOBIN 2.8 % (0.0-5.0); BG HCO3 ACT 28.4 mmol/L (22.0-26.0); BG METHEMOGLOBIN 0.1 % (0.0-1.5); BG OXYGEN SATURATION 97.2 % (92.0-98.5); BG OXYHEMOGLOBIN 96.8 % (94.0-97.0); BG PCO2 45.3 mmHg (35.0-45.0); BG PH 7.415 (7.350-7.450); BG PO2 99.8 mmHg (75.0-100.0); BG SAMPLE SITE RIGHT RADIAL; BG TOTAL HEMOGLOBIN 9.1 g/dL (12.0-18.0); BG VENT MODE NASAL CANNULA
[2018-06-28] MEDS: FUROSEMIDE 40MG/4ML VIAL IVP SCH (14:43)
[2018-06-28] MEDS: HYDRALAZINE HCL 50MG TABLET PO SCH ×2 (14:44→21:04)
[2018-06-28] MEDS: ATORVASTATIN CALCIUM 20MG TABLET PO SCH (21:04)
[2018-06-28] MEDS: METHYLPREDNISOLONE SOD SUCC 40 MG/ML VIAL IV SCH (21:04)
[2018-06-28] MEDS: LEVOFLOXACIN 250MG PREMIX 50 ML IV SCH (21:05)
[2018-06-29] VITALS (7 sets, daily range): BP systolic 130–169; BP diastolic 53–98
[2018-06-29] MEDS: IPRATROPIUM/ALBUTEROL 0.5-3(2.5)MG/3ML NEB INH SCH ×6 (00:13→21:14)
[2018-06-29] MEDS: DILTIAZEM HCL 30MG TABLET PO SCH (05:18)
[2018-06-29] MEDS: HYDRALAZINE HCL 50MG TABLET PO SCH (05:18)
[2018-06-29] MEDS: BLOOD SUGAR DIAGNOSTIC STRIP TEST SCH ×4 (06:19→21:45)
[2018-06-29] MEDS: INSULIN LISPRO 100 UNITS/ML SUBCUT SCH ×4 (06:35→21:43)
[2018-06-29 08:19] LABS: HEMOGLOBIN 8.1 g/dL (12.0-16.0); MEAN CORPUSCULAR HEMOGLOBIN 23.9 pg (28.0-32.0); MEAN CORPUSCULAR VOLUME 76.8 fL (81.0-99.0); PLATELET 285 x1000/uL (130-400); RED BLOOD CELL COUNT 3.38 mill/uL (4.2-5.4); RED CELL DISTRIBUTION WIDTH 17.1 % (11.6-14.6)
[2018-06-29] MEDS: CLONIDINE 0.1MG TABLET PO PRN (09:08)
[2018-06-29] MEDS: FUROSEMIDE 40MG/4ML VIAL IVP SCH ×2 (09:09→17:51)
[2018-06-29] MEDS: DOCUSATE SODIUM 100MG CAPSULE PO SCH ×2 (09:09→17:51)
[2018-06-29] MEDS: ASPIRIN 81MG TABLET PO SCH (09:09)
[2018-06-29] MEDS: METHYLPREDNISOLONE SOD SUCC 40 MG/ML VIAL IV SCH (09:09)
[2018-06-29] MEDS: INSULIN GLARGINE UD 100 UNITS/ML SYR SUBCUT SCH ×2 (09:45→21:44)
[2018-06-29] MEDS ORDERED: INSULIN GLARGINE UD 100 UNITS/ML SYR SUBCUT NR ×2 (11:30→18:30)
[2018-06-29] MEDS: NIFEDIPINE XL 90MG TAB PO SCH (11:59)
[2018-06-29] MEDS: HYDRALAZINE HCL 100MG TABLET PO SCH ×2 (14:35→21:40)
[2018-06-29] MEDS: HYDROCODONE/ACETAMINOPHEN 5/325MG TABLET PO PRN (14:36)
[2018-06-29] MEDS: NITROGLYCERIN 0.4MG TABLET SL SL PRN (15:47)
[2018-06-29] MEDS ORDERED: NITROGLYCERIN OINT 1GM/INCH UDPKT TD NR (16:00)
[2018-06-29] MEDS ORDERED: MORPHINE SULFATE 4 MG/ML CPJ (NOT FOR IM USE) IV NR (16:00)
[2018-06-29] MEDS: LEVOFLOXACIN 250MG PREMIX 50 ML IV SCH (17:52)
[2018-06-29] MEDS: ATORVASTATIN CALCIUM 20MG TABLET PO SCH (21:40)
[2018-06-29] MEDS ORDERED: INSULIN GLARGINE UD 100 UNITS/ML SYR SUBCUT SCH (22:00)
[2018-06-30] VITALS: BP 139/66
[2018-06-30] MEDS: NITROGLYCERIN 0.4MG TABLET SL SL PRN ×3 (02:42→09:00)
[2018-06-30] MEDS: MAGNESIUM/ALUMINUM HYDROXIDE/SIMETHICONE 30ML UDC PO PRN (02:45)
[2018-06-30] MEDS: HYDROCODONE/ACETAMINOPHEN 5/325MG TABLET PO PRN ×2 (03:21→08:52)
[2018-06-30 04:00] VITALS: BP 148/51
[2018-06-30] MEDS: HYDRALAZINE HCL 100MG TABLET PO SCH ×3 (05:21→21:41)
[2018-06-30] MEDS: IPRATROPIUM/ALBUTEROL 0.5-3(2.5)MG/3ML NEB INH SCH ×5 (05:40→20:42)
[2018-06-30 07:13] LABS: HEMATOCRIT. 29.7 % (36.0-48.0); HEMOGLOBIN. 9.1 g/dL (12.0-16.0); MEAN CORPUSCULAR HEMOGLOBIN 23.9 pg (28.0-32.0); MEAN CORPUSCULAR VOLUME 78.4 fL (81.0-99.0); MEAN PLATELET VOLUME 9.3 fl (7.4-10.4); PLATELET 305 x1000/uL (130-400); RED BLOOD CELL COUNT 3.79 mill/uL (4.2-5.4); RED CELL DISTRIBUTION WIDTH 17.4 % (11.6-14.6)
[2018-06-30 08:00] VITALS: BP 171/64
[2018-06-30] MEDS: DOCUSATE SODIUM 100MG CAPSULE PO SCH ×2 (09:02→17:55)
[2018-06-30] MEDS: NIFEDIPINE XL 90MG TAB PO SCH (09:03)
[2018-06-30] MEDS: ASPIRIN 81MG TABLET PO SCH (09:03)
[2018-06-30] MEDS: METHYLPREDNISOLONE SOD SUCC 40 MG/ML VIAL IV SCH (09:04)
[2018-06-30] MEDS: INSULIN GLARGINE UD 100 UNITS/ML SYR SUBCUT SCH ×2 (10:35→21:53)
[2018-06-30 10:44] LABS: PLATELET ESTIMATE NORMAL
[2018-06-30 12:00] VITALS: BP 179/68
[2018-06-30] MEDS ORDERED: MORPHINE SULFATE 4 MG/ML CPJ (NOT FOR IM USE) IV NR (12:30)
[2018-06-30] MEDS: CLONIDINE 0.1MG TABLET PO PRN (12:45)
[2018-06-30] MEDS: BLOOD SUGAR DIAGNOSTIC STRIP TEST SCH ×3 (12:47→21:00)
[2018-06-30] MEDS ORDERED: INSULIN LISPRO 100 UNITS/ML SUBCUT NR (13:11)
[2018-06-30] MEDS: INSULIN LISPRO 100 UNITS/ML SUBCUT SCH ×3 (13:18→21:52)
[2018-06-30] MEDS: SILDENAFIL CITRATE 20MG TABLET PO SCH ×2 (15:05→21:39)
[2018-06-30 16:00] VITALS: BP 163/79
[2018-06-30] MEDS: FUROSEMIDE 40MG/4ML VIAL IVP SCH (17:54)
[2018-06-30] MEDS: LEVOFLOXACIN 250MG PREMIX 50 ML IV SCH (18:12)
[2018-06-30 20:00] VITALS: BP 160/63
[2018-06-30] MEDS: ATORVASTATIN CALCIUM 20MG TABLET PO SCH (21:37)
[2018-06-30] MEDS: NIFEDIPINE XL 60MG TAB PO SCH (21:40)
[2018-07-01] VITALS: BP 145/71
[2018-07-01] MEDS: IPRATROPIUM/ALBUTEROL 0.5-3(2.5)MG/3ML NEB INH SCH ×6 (00:17→20:13)
[2018-07-01] MEDS: LORAZEPAM 0.5MG TABLET PO PRN ×2 (01:00→05:01)
[2018-07-01 04:00] VITALS: BP 159/62
[2018-07-01] MEDS: ACETAMINOPHEN 325MG TABLET PO PRN (05:01)
[2018-07-01] MEDS: SILDENAFIL CITRATE 20MG TABLET PO SCH ×3 (05:02→21:43)
[2018-07-01] MEDS: HYDRALAZINE HCL 100MG TABLET PO SCH ×3 (05:02→21:32)
[2018-07-01] MEDS: MAGNESIUM/ALUMINUM HYDROXIDE/SIMETHICONE 30ML UDC PO PRN (05:06)
[2018-07-01] MEDS: BLOOD SUGAR DIAGNOSTIC STRIP TEST SCH ×4 (06:16→21:00)
[2018-07-01] MEDS: FUROSEMIDE 40MG/4ML VIAL IVP SCH (06:19)
[2018-07-01] MEDS: INSULIN LISPRO 100 UNITS/ML SUBCUT SCH ×4 (06:20→21:05)
[2018-07-01 06:32] LABS: HEMATOCRIT. 27.9 % (36.0-48.0); HEMOGLOBIN. 8.7 g/dL (12.0-16.0); MEAN CORPUSCULAR VOLUME 76.7 fL (81.0-99.0); MEAN PLATELET VOLUME 9.2 fl (7.4-10.4); PLATELET 369 x1000/uL (130-400); RED BLOOD CELL COUNT 3.64 mill/uL (4.2-5.4); RED CELL DISTRIBUTION WIDTH 16.9 % (11.6-14.6)
[2018-07-01 08:00] VITALS: BP 150/52
[2018-07-01] MEDS: ASPIRIN 81MG TABLET PO SCH (08:27)
[2018-07-01] MEDS: METHYLPREDNISOLONE SOD SUCC 40 MG/ML VIAL IV SCH (08:27)
[2018-07-01] MEDS: DOCUSATE SODIUM 100MG CAPSULE PO SCH ×2 (08:28→16:47)
[2018-07-01] MEDS: HYDROCODONE/ACETAMINOPHEN 5/325MG TABLET PO PRN ×2 (08:29→13:36)
[2018-07-01] MEDS: NIFEDIPINE XL 60MG TAB PO SCH ×2 (08:29→21:02)
[2018-07-01] MEDS: INSULIN GLARGINE UD 100 UNITS/ML SYR SUBCUT SCH ×2 (09:38→21:38)
[2018-07-01] MEDS ORDERED: POTASSIUM CHLORIDE 20MEQ TABLET SR PO NR (11:15)
[2018-07-01] MEDS ORDERED: MAGNESIUM/ALUMINUM HYDROXIDE/SIMETHICONE 30ML UDC PO PRN (11:30)
[2018-07-01 12:00] VITALS: BP 127/58
[2018-07-01 13:15] LABS: BG BASE EXCESS 4.8 mmol/L (-2.0-2.0); BG BILEVEL POS AIRWAY PRESSURE 15/5; BG CARBOXYHEMOGLOBIN 0.1 % (0.5-1.5); BG DEOXYHEMOGLOBIN 2.2 % (0.0-5.0); BG FRACTION INSPIRED OXYGEN 60; BG HCO3 ACT 29.1 mmol/L (22.0-26.0); BG METHEMOGLOBIN 0.4 % (0.0-1.5); BG OXYGEN SATURATION 97.8 % (92.0-98.5); BG OXYHEMOGLOBIN 97.3 % (94.0-97.0); BG PCO2 42.2 mmHg (35.0-45.0); BG PH 7.457 (7.350-7.450); BG SAMPLE SITE RIGHT BRACHIAL; BG TOTAL HEMOGLOBIN 9.2 g/dL (12.0-18.0); BG VENT MODE MASK - BIPAP
[2018-07-01] MEDS: CLONIDINE 0.1MG TABLET PO SCH ×2 (13:29→21:32)
[2018-07-01] MEDS: PANTOPRAZOLE 40MG DR TABLET PO SCH (13:37)
[2018-07-01 14:00] LABS: PLATELET ESTIMATE NORMAL
[2018-07-01 16:00] VITALS: BP 156/56
[2018-07-01] MEDS ORDERED: LORAZEPAM 0.5MG TABLET PO PRN (16:30)
[2018-07-01] MEDS: LEVOFLOXACIN 250MG PREMIX 50 ML IV SCH (17:49)
[2018-07-01 20:00] VITALS: BP 187/70
[2018-07-01] MEDS: BUDESONIDE 0.5MG/2ML NEB HHN SCH (20:14)
[2018-07-01] MEDS: ATORVASTATIN CALCIUM 20MG TABLET PO SCH (21:02)
[2018-07-02] VITALS (9 sets, daily range): BP systolic 143–169; BP diastolic 53–82
[2018-07-02] MEDS: IPRATROPIUM/ALBUTEROL 0.5-3(2.5)MG/3ML NEB INH SCH ×6 (00:18→20:02)
[2018-07-02] MEDS: CLONIDINE 0.1MG TABLET PO SCH ×3 (06:00→23:31)
[2018-07-02 06:24] LABS: HEMATOCRIT. 23.4 % (36.0-48.0); HEMOGLOBIN. 7.4 g/dL (12.0-16.0); MEAN CORPUSCULAR HEMOGLOBIN 24.1 pg (28.0-32.0); MEAN CORPUSCULAR VOLUME 75.9 fL (81.0-99.0); MEAN PLATELET VOLUME 9.7 fl (7.4-10.4); PLATELET 233 x1000/uL (130-400); RED BLOOD CELL COUNT 3.08 mill/uL (4.2-5.4); RED CELL DISTRIBUTION WIDTH 17.4 % (11.6-14.6)
[2018-07-02] MEDS: HYDRALAZINE HCL 100MG TABLET PO SCH ×3 (06:37→21:38)
[2018-07-02] MEDS: SILDENAFIL CITRATE 20MG TABLET PO SCH ×3 (06:37→21:39)
[2018-07-02] MEDS: PANTOPRAZOLE 40MG DR TABLET PO SCH (06:37)
[2018-07-02] MEDS: BLOOD SUGAR DIAGNOSTIC STRIP TEST SCH ×5 (06:40→23:10)
[2018-07-02] MEDS: INSULIN LISPRO 100 UNITS/ML SUBCUT SCH ×4 (06:47→21:40)
[2018-07-02] MEDS: METHYLPREDNISOLONE SOD SUCC 40 MG/ML VIAL IV SCH (09:03)
[2018-07-02] MEDS: DOCUSATE SODIUM 100MG CAPSULE PO SCH ×2 (09:03→18:37)
[2018-07-02] MEDS: ASPIRIN 81MG TABLET PO SCH (09:03)
[2018-07-02] MEDS: NIFEDIPINE XL 60MG TAB PO SCH ×2 (09:03→21:38)
[2018-07-02] MEDS: HYDROCODONE/ACETAMINOPHEN 5/325MG TABLET PO PRN ×2 (09:07→23:31)
[2018-07-02 09:56] LABS: PLATELET ESTIMATE NORMAL
[2018-07-02] MEDS: INSULIN GLARGINE UD 100 UNITS/ML SYR SUBCUT SCH ×2 (10:00→21:40)
[2018-07-02 12:02] LABS: BG BASE EXCESS 8.1 mmol/L (-2.0-2.0); BG BILEVEL POS AIRWAY PRESSURE ST=15/5; BG CARBOXYHEMOGLOBIN 0.1 % (0.5-1.5); BG DEOXYHEMOGLOBIN 6.2 % (0.0-5.0); BG FRACTION INSPIRED OXYGEN 40; BG HCO3 ACT 32.3 mmol/L (22.0-26.0); BG METHEMOGLOBIN 0.1 % (0.0-1.5); BG OXYGEN SATURATION 93.8 % (92.0-98.5); BG OXYHEMOGLOBIN 93.6 % (94.0-97.0); BG PCO2 43.4 mmHg (35.0-45.0); BG PH 7.489 (7.350-7.450); BG PO2 66.9 mmHg (75.0-100.0); BG SAMPLE SITE LEFT RADIAL; BG TOTAL HEMOGLOBIN 8.9 g/dL (12.0-18.0); BG VENT MODE MASK - BIPAP; BG VENT RATE 20 set
[2018-07-02] MEDS: FUROSEMIDE 40MG/4ML VIAL IVP SCH ×2 (14:05→21:37)
[2018-07-02] MEDS ORDERED: HYDROCODONE/ACETAMINOPHEN 5/325MG TABLET PO PRN (16:30)
[2018-07-02] MEDS: BUDESONIDE 0.5MG/2ML NEB HHN SCH ×2 (16:47→20:01)
[2018-07-02] MEDS: MEROPENEM 500 MG in SODIUM CHLORIDE 0.9% 50 ML IV SCH (18:37)
[2018-07-02] MEDS ORDERED: VANCOMYCIN 1 G PREMIX 200 ML IV SCH (20:00)
[2018-07-02] MEDS: ATORVASTATIN CALCIUM 20MG TABLET PO SCH (23:10)
[2018-07-03] VITALS (17 sets, daily range): BP systolic 144–184; BP diastolic 61–84
[2018-07-03] MEDS: IPRATROPIUM/ALBUTEROL 0.5-3(2.5)MG/3ML NEB INH SCH ×6 (00:22→20:27)
[2018-07-03] MEDS: CLONIDINE 0.1MG TABLET PO PRN (01:47)
[2018-07-03] MEDS: FUROSEMIDE 40MG/4ML VIAL IVP SCH ×2 (05:41→18:45)
[2018-07-03] MEDS: CLONIDINE 0.1MG TABLET PO SCH ×3 (05:41→21:48)
[2018-07-03] MEDS: HYDRALAZINE HCL 100MG TABLET PO SCH ×3 (05:41→21:48)
[2018-07-03] MEDS: SILDENAFIL CITRATE 20MG TABLET PO SCH ×3 (05:42→21:48)
[2018-07-03] MEDS: MEROPENEM 500 MG in SODIUM CHLORIDE 0.9% 50 ML IV SCH ×2 (05:43→18:46)
[2018-07-03 06:18] LABS: HEMATOCRIT 21.4 % (36.0-48.0); MEAN CORPUSCULAR HEMOGLOBIN 24.1 pg (28.0-32.0); MEAN CORPUSCULAR VOLUME 75.6 fL (81.0-99.0); PLATELET 247 x1000/uL (130-400); RED BLOOD CELL COUNT 2.84 mill/uL (4.2-5.4); RED CELL DISTRIBUTION WIDTH 17.2 % (11.6-14.6)
[2018-07-03 06:39] LABS: HEMOGLOBIN 6.8 g/dL (12.0-16.0)
[2018-07-03] MEDS: BLOOD SUGAR DIAGNOSTIC STRIP TEST SCH ×4 (07:38→21:47)
[2018-07-03] MEDS: FAMOTIDINE 20MG TABLET PO SCH (08:15)
[2018-07-03] MEDS: DOCUSATE SODIUM 100MG CAPSULE PO SCH ×2 (08:16→18:45)
[2018-07-03] MEDS: NIFEDIPINE XL 60MG TAB PO SCH ×2 (08:16→21:48)
[2018-07-03] MEDS: ASPIRIN 81MG TABLET PO SCH (08:16)
[2018-07-03] MEDS: METHYLPREDNISOLONE SOD SUCC 40 MG/ML VIAL IV SCH (08:16)
[2018-07-03] MEDS: INSULIN LISPRO 100 UNITS/ML SUBCUT SCH ×4 (08:17→21:50)
[2018-07-03 10:29] LABS: BG BASE EXCESS 10.7 mmol/L (-2.0-2.0); BG BILEVEL POS AIRWAY PRESSURE ST=15/5; BG CARBOXYHEMOGLOBIN 0.6 % (0.5-1.5); BG DEOXYHEMOGLOBIN 6.2 % (0.0-5.0); BG FRACTION INSPIRED OXYGEN 40; BG METHEMOGLOBIN 0.1 % (0.0-1.5); BG OXYGEN SATURATION 93.8 % (92.0-98.5); BG OXYHEMOGLOBIN 93.1 % (94.0-97.0); BG PCO2 46.3 mmHg (35.0-45.0); BG PH 7.496 (7.350-7.450); BG PO2 67.9 mmHg (75.0-100.0); BG PRESSURE SUPPORT 10; BG SAMPLE SITE LEFT RADIAL; BG VENT MODE MASK - BIPAP; BG VENT RATE 18 set
[2018-07-03] MEDS: INSULIN GLARGINE UD 100 UNITS/ML SYR SUBCUT SCH ×2 (10:45→21:50)
[2018-07-03] MEDS ORDERED: PANTOPRAZOLE 40MG DR TABLET PO SCH (11:30)
[2018-07-03 11:37] LABS: TOTAL IRON BINDING CAPACITY 252 ug/dL (250-450)
[2018-07-03] MEDS: BUDESONIDE 0.5MG/2ML NEB HHN SCH ×2 (12:28→20:28)
[2018-07-03] MEDS ORDERED: LACTULOSE 20G/30ML UDC PO NR (17:15)
[2018-07-03] MEDS ORDERED: SORBITOL 70% SOLN 30ML PO SCH (17:45)
[2018-07-03] MEDS: FERROUS SULFATE 325MG TABLET PO SCH (18:45)
[2018-07-03] MEDS: VANCOMYCIN 750 MG PREMIX 150 ML IV SCH (20:05)
[2018-07-03] MEDS: ATORVASTATIN CALCIUM 20MG TABLET PO SCH (21:48)
[2018-07-03 23:01] LABS: HEMATOCRIT 28.5 % (36.0-48.0); HEMOGLOBIN 9.1 g/dL (12.0-16.0)
[2018-07-03] MEDS: HYDROCODONE/ACETAMINOPHEN 5/325MG TABLET PO PRN (23:02)
[2018-07-04] VITALS (12 sets, daily range): BP systolic 149–165; BP diastolic 64–78
[2018-07-04] MEDS: IPRATROPIUM/ALBUTEROL 0.5-3(2.5)MG/3ML NEB INH SCH ×7 (00:09→23:57)
[2018-07-04] MEDS: MEROPENEM 500 MG in SODIUM CHLORIDE 0.9% 50 ML IV SCH ×2 (05:33→18:20)
[2018-07-04] MEDS: FUROSEMIDE 40MG/4ML VIAL IVP SCH ×2 (05:33→17:50)
[2018-07-04] MEDS: SILDENAFIL CITRATE 20MG TABLET PO SCH ×3 (05:34→21:52)
[2018-07-04] MEDS: HYDRALAZINE HCL 100MG TABLET PO SCH ×3 (05:34→21:52)
[2018-07-04] MEDS: CLONIDINE 0.1MG TABLET PO SCH ×3 (05:34→21:51)
[2018-07-04 06:50] LABS: BASOPHILS % 0.1 % (0.0-2.0); EOSINOPHILS % 0.9 % (0.0-5.0); HEMATOCRIT. 24.7 % (36.0-48.0); LYMPHOCYTES % 7.9 % (20.0-50.0); MEAN CORPUSCULAR HEMOGLOBIN 24.9 pg (28.0-32.0); MEAN CORPUSCULAR VOLUME 76.7 fL (81.0-99.0); MEAN PLATELET VOLUME 9.1 fl (7.4-10.4); MONOCYTES % 7.2 % (2.0-8.0); NEUTROPHILS % 83.9 % (40.0-76.0); PLATELET 254 x1000/uL (130-400); RED BLOOD CELL COUNT 3.22 mill/uL (4.2-5.4); RED CELL DISTRIBUTION WIDTH 16.9 % (11.6-14.6)
[2018-07-04] MEDS: BLOOD SUGAR DIAGNOSTIC STRIP TEST SCH ×4 (07:24→21:23)
[2018-07-04] MEDS: BUDESONIDE 0.5MG/2ML NEB HHN SCH ×2 (07:56→20:50)
[2018-07-04] MEDS: ASPIRIN 81MG TABLET PO SCH (08:25)
[2018-07-04] MEDS: DOCUSATE SODIUM 100MG CAPSULE PO SCH ×2 (08:33→17:50)
[2018-07-04] MEDS: FERROUS SULFATE 325MG TABLET PO SCH ×2 (08:33→17:50)
[2018-07-04] MEDS: FAMOTIDINE 20MG TABLET PO SCH (08:33)
[2018-07-04] MEDS: METHYLPREDNISOLONE SOD SUCC 40 MG/ML VIAL IV SCH (08:33)
[2018-07-04] MEDS: INSULIN LISPRO 100 UNITS/ML SUBCUT SCH ×4 (08:34→21:53)
[2018-07-04] MEDS: NIFEDIPINE XL 60MG TAB PO SCH ×2 (08:39→20:23)
[2018-07-04] MEDS: INSULIN GLARGINE UD 100 UNITS/ML SYR SUBCUT SCH ×2 (09:22→21:54)
[2018-07-04 12:38] LABS: HEMATOCRIT 28.3 % (36.0-48.0); HEMOGLOBIN 9.2 g/dL (12.0-16.0)
[2018-07-04] MEDS: ATORVASTATIN CALCIUM 20MG TABLET PO SCH (20:23)
[2018-07-04] MEDS: VANCOMYCIN 750 MG PREMIX 150 ML IV SCH (20:23)
[2018-07-05] VITALS (9 sets, daily range): BP systolic 101–162; BP diastolic 55–80
[2018-07-05] MEDS: IPRATROPIUM/ALBUTEROL 0.5-3(2.5)MG/3ML NEB INH SCH ×5 (03:55→21:11)
[2018-07-05] MEDS: MEROPENEM 500 MG in SODIUM CHLORIDE 0.9% 50 ML IV SCH ×2 (06:18→17:09)
[2018-07-05] MEDS: FUROSEMIDE 40MG/4ML VIAL IVP SCH ×2 (06:18→17:08)
[2018-07-05] MEDS: CLONIDINE 0.1MG TABLET PO SCH ×3 (06:19→21:45)
[2018-07-05] MEDS: SILDENAFIL CITRATE 20MG TABLET PO SCH ×3 (06:19→21:45)
[2018-07-05] MEDS: HYDRALAZINE HCL 100MG TABLET PO SCH ×3 (06:19→21:45)
[2018-07-05 07:14] LABS: HEMATOCRIT 25.4 % (36.0-48.0); MEAN CORPUSCULAR HEMOGLOBIN 24.4 pg (28.0-32.0); MEAN CORPUSCULAR VOLUME 77.3 fL (81.0-99.0); PLATELET 262 x1000/uL (130-400); RED BLOOD CELL COUNT 3.29 mill/uL (4.2-5.4); RED CELL DISTRIBUTION WIDTH 16.9 % (11.6-14.6)
[2018-07-05] MEDS: BLOOD SUGAR DIAGNOSTIC STRIP TEST SCH ×4 (07:30→21:45)
[2018-07-05] MEDS: INSULIN LISPRO 100 UNITS/ML SUBCUT SCH ×3 (08:00→22:19)
[2018-07-05] MEDS: NIFEDIPINE XL 60MG TAB PO SCH ×2 (09:00→21:44)
[2018-07-05] MEDS: FAMOTIDINE 20MG TABLET PO SCH (09:23)
[2018-07-05] MEDS: FERROUS SULFATE 325MG TABLET PO SCH (09:23)
[2018-07-05] MEDS: ASPIRIN 81MG TABLET PO SCH (09:23)
[2018-07-05] MEDS: DOCUSATE SODIUM 100MG CAPSULE PO SCH (09:23)
[2018-07-05] MEDS: PREDNISONE 20MG TABLET PO SCH (09:24)
[2018-07-05] MEDS: INSULIN GLARGINE UD 100 UNITS/ML SYR SUBCUT SCH ×2 (09:25→22:17)
[2018-07-05 10:57] LABS: BG BASE EXCESS 9.5 mmol/L (-2.0-2.0); BG BILEVEL POS AIRWAY PRESSURE 15/5; BG FRACTION INSPIRED OXYGEN 40; BG HCO3 ACT 33.8 mmol/L (22.0-26.0); BG METHEMOGLOBIN 0.3 % (0.0-1.5); BG OXYHEMOGLOBIN 96.7 % (94.0-97.0); BG PCO2 44.8 mmHg (35.0-45.0); BG PH 7.495 (7.350-7.450); BG PO2 96.2 mmHg (75.0-100.0); BG SAMPLE SITE RIGHT RADIAL; BG TOTAL HEMOGLOBIN 9.5 g/dL (12.0-18.0); BG VENT MODE MASK - BIPAP; BG VENT RATE 16 set
[2018-07-05] MEDS ORDERED: IRON SUCROSE COMPLEX 100 MG/5 ML ML IV SCH (12:30)
[2018-07-05] MEDS: ACETAMINOPHEN 325MG TABLET PO PRN ×2 (19:03→19:06)
[2018-07-05] MEDS: VANCOMYCIN 1 G PREMIX 200 ML IV SCH (21:44)
[2018-07-05] MEDS: ATORVASTATIN CALCIUM 20MG TABLET PO SCH (21:44)
[2018-07-06] VITALS (11 sets, daily range): BP systolic 143–167; BP diastolic 59–109
[2018-07-06] MEDS: IPRATROPIUM/ALBUTEROL 0.5-3(2.5)MG/3ML NEB INH SCH ×6 (00:17→20:20)
[2018-07-06] MEDS: FUROSEMIDE 40MG/4ML VIAL IVP SCH ×2 (05:41→21:15)
[2018-07-06] MEDS: HYDRALAZINE HCL 100MG TABLET PO SCH ×3 (05:41→21:14)
[2018-07-06] MEDS: MEROPENEM 500 MG in SODIUM CHLORIDE 0.9% 50 ML IV SCH ×2 (05:41→21:15)
[2018-07-06] MEDS: CLONIDINE 0.1MG TABLET PO SCH ×3 (05:41→21:31)
[2018-07-06] MEDS: SILDENAFIL CITRATE 20MG TABLET PO SCH ×3 (05:41→21:14)
[2018-07-06 06:33] LABS: HEMOGLOBIN 8.1 g/dL (12.0-16.0); MEAN CORPUSCULAR HEMOGLOBIN 24.9 pg (28.0-32.0); MEAN CORPUSCULAR VOLUME 77.1 fL (81.0-99.0); PLATELET 273 x1000/uL (130-400); RED BLOOD CELL COUNT 3.24 mill/uL (4.2-5.4); RED CELL DISTRIBUTION WIDTH 17.1 % (11.6-14.6)
[2018-07-06] MEDS: BLOOD SUGAR DIAGNOSTIC STRIP TEST SCH ×4 (07:30→21:18)
[2018-07-06] MEDS: INSULIN LISPRO 100 UNITS/ML SUBCUT SCH ×4 (09:38→21:28)
[2018-07-06] MEDS: FERROUS SULFATE 325MG TABLET PO SCH (09:39)
[2018-07-06] MEDS: ASPIRIN 81MG TABLET PO SCH (09:39)
[2018-07-06] MEDS: NIFEDIPINE XL 60MG TAB PO SCH ×2 (09:39→21:14)
[2018-07-06] MEDS: DOCUSATE SODIUM 100MG CAPSULE PO SCH ×2 (09:39→17:58)
[2018-07-06] MEDS: FAMOTIDINE 20MG TABLET PO SCH (09:39)
[2018-07-06] MEDS: PREDNISONE 20MG TABLET PO SCH (09:39)
[2018-07-06] MEDS: IRON SUCROSE COMPLEX 100 MG/5 ML ML IV SCH (09:40)
[2018-07-06] MEDS: INSULIN GLARGINE UD 100 UNITS/ML SYR SUBCUT SCH ×2 (11:19→21:28)
[2018-07-06] MEDS: AMLODIPINE 5MG TABLET PO SCH (11:20)
[2018-07-06] MEDS: ATORVASTATIN CALCIUM 20MG TABLET PO SCH (21:10)
[2018-07-06] MEDS: VANCOMYCIN 1 G PREMIX 200 ML IV SCH (22:42)
[2018-07-07] VITALS (20 sets, daily range): BP systolic 115–168; BP diastolic 59–92
[2018-07-07] MEDS: IPRATROPIUM/ALBUTEROL 0.5-3(2.5)MG/3ML NEB INH SCH ×6 (00:10→20:17)
[2018-07-07] MEDS: SILDENAFIL CITRATE 20MG TABLET PO SCH ×3 (05:48→21:07)
[2018-07-07] MEDS: CLONIDINE 0.1MG TABLET PO SCH ×3 (05:48→21:06)
[2018-07-07] MEDS: MEROPENEM 500 MG in SODIUM CHLORIDE 0.9% 50 ML IV SCH ×2 (05:48→18:14)
[2018-07-07] MEDS: HYDRALAZINE HCL 100MG TABLET PO SCH ×3 (05:48→21:06)
[2018-07-07] MEDS: FUROSEMIDE 40MG/4ML VIAL IVP SCH ×3 (05:48→21:07)
[2018-07-07 06:08] LABS: HEMATOCRIT 26.1 % (36.0-48.0); HEMOGLOBIN 8.4 g/dL (12.0-16.0); MEAN CORPUSCULAR HEMOGLOBIN 24.9 pg (28.0-32.0); MEAN CORPUSCULAR VOLUME 77.6 fL (81.0-99.0); PLATELET 296 x1000/uL (130-400); RED BLOOD CELL COUNT 3.37 mill/uL (4.2-5.4); RED CELL DISTRIBUTION WIDTH 17.1 % (11.6-14.6)
[2018-07-07] MEDS: BLOOD SUGAR DIAGNOSTIC STRIP TEST SCH ×4 (07:30→21:07)
[2018-07-07] MEDS: INSULIN LISPRO 100 UNITS/ML SUBCUT SCH ×4 (09:36→21:08)
[2018-07-07] MEDS: IRON SUCROSE COMPLEX 100 MG/5 ML ML IV SCH (09:37)
[2018-07-07] MEDS: NIFEDIPINE XL 60MG TAB PO SCH ×2 (09:37→21:07)
[2018-07-07] MEDS: ASPIRIN 81MG TABLET PO SCH (09:38)
[2018-07-07] MEDS: AMLODIPINE 5MG TABLET PO SCH (09:40)
[2018-07-07] MEDS: DOCUSATE SODIUM 100MG CAPSULE PO SCH ×2 (09:41→18:13)
[2018-07-07] MEDS: PREDNISONE 20MG TABLET PO SCH (09:41)
[2018-07-07] MEDS: FAMOTIDINE 20MG TABLET PO SCH (09:41)
[2018-07-07] MEDS: INSULIN GLARGINE UD 100 UNITS/ML SYR SUBCUT SCH ×2 (12:06→21:08)
[2018-07-07] MEDS: ATORVASTATIN CALCIUM 20MG TABLET PO SCH (21:06)
[2018-07-07] MEDS: VANCOMYCIN 1 G PREMIX 200 ML IV SCH (21:07)
[2018-07-08] VITALS (13 sets, daily range): BP systolic 148–184; BP diastolic 60–76
[2018-07-08] MEDS: MEROPENEM 500 MG in SODIUM CHLORIDE 0.9% 50 ML IV SCH (06:25)
[2018-07-08] MEDS: CLONIDINE 0.1MG TABLET PO SCH ×2 (06:26→13:41)
[2018-07-08] MEDS: HYDRALAZINE HCL 100MG TABLET PO SCH ×2 (06:26→13:39)
[2018-07-08] MEDS: SILDENAFIL CITRATE 20MG TABLET PO SCH ×2 (06:26→13:44)
[2018-07-08] MEDS: FUROSEMIDE 40MG/4ML VIAL IVP SCH ×2 (06:26→13:39)
[2018-07-08] MEDS: IPRATROPIUM/ALBUTEROL 0.5-3(2.5)MG/3ML NEB INH SCH ×3 (06:26→12:42)
[2018-07-08] MEDS: BLOOD SUGAR DIAGNOSTIC STRIP TEST SCH ×2 (07:30→12:39)
[2018-07-08] MEDS: FAMOTIDINE 20MG TABLET PO SCH (08:52)
[2018-07-08] MEDS: NIFEDIPINE XL 60MG TAB PO SCH (08:52)
[2018-07-08] MEDS: AMLODIPINE 5MG TABLET PO SCH (08:52)
[2018-07-08] MEDS: ASPIRIN 81MG TABLET PO SCH (08:52)
[2018-07-08] MEDS: PREDNISONE 20MG TABLET PO SCH (09:00)
[2018-07-08] MEDS: INSULIN LISPRO 100 UNITS/ML SUBCUT SCH ×2 (09:02→13:41)
[2018-07-08] MEDS: INSULIN GLARGINE UD 100 UNITS/ML SYR SUBCUT SCH (09:44)
[2018-07-08] MEDS: DOCUSATE SODIUM 100MG CAPSULE PO SCH (09:53)
[2018-07-08] MEDS: CLONIDINE 0.1MG TABLET PO PRN (12:39)
[2018-07-08] MEDS ORDERED: INSULIN GLARGINE UD 100 UNITS/ML SYR SUBCUT SCH (22:00)
[2018-07-09] MEDS ORDERED: PREDNISONE 20MG TABLET PO SCH (09:00)
[2018-07-13] MEDS ORDERED: PREDNISONE 10MG TABLET PO SCH (09:00)
== END 2018-07-08 15:25 | DRG 871 ==
LOC: ER 11:30 → 3WST 12:47 → EDBEDREQTM 12:50 → EDBEDREQ 12:50 → ENRESERV 06-28 00:27 → 8WST 06-29 04:03 → 5EST 07-02 12:16
PROVIDERS: ADMIT Internal Medicine; ATTEND Internal Medicine
PROC: 5A09357 Assistance with Respiratory Ventilation, Less than 24 Consecutive Hours, Continuous Positive Airway Pressure (ICD-10-PCS; 2018-06-27)
PROC: 5A09357 Assistance with Respiratory Ventilation, Less than 24 Consecutive Hours, Continuous Positive Airway Pressure (ICD-10-PCS; 2018-07-02)
PROC: 30233N1 Transfusion of Nonautologous Red Blood Cells into Peripheral Vein, Percutaneous Approach (ICD-10-PCS; principal; 2018-07-03)
PROC: 5A09357 Assistance with Respiratory Ventilation, Less than 24 Consecutive Hours, Continuous Positive Airway Pressure (ICD-10-PCS; 2018-07-03)
PROC: 5A09357 Assistance with Respiratory Ventilation, Less than 24 Consecutive Hours, Continuous Positive Airway Pressure (ICD-10-PCS; 2018-07-04)
PROC: 5A09357 Assistance with Respiratory Ventilation, Less than 24 Consecutive Hours, Continuous Positive Airway Pressure (ICD-10-PCS; 2018-07-05)
DX: A41.9 Sepsis, unspecified organism (principal); I21.4 Non-ST elevation (NSTEMI) myocardial infarction; I50.33 Acute on chronic diastolic (congestive) heart failure; J18.9 Pneumonia, unspecified organism; J96.21 Acute and chronic respiratory failure with hypoxia; J44.1 Chronic obstructive pulmonary disease with (acute) exacerbation; I13.0 Hypertensive heart and chronic kidney disease with heart failure and stage 1 through stage 4 chronic kidney disease, or unspecified chronic kidney disease; J44.0 Chronic obstructive pulmonary disease with (acute) lower respiratory infection; E66.2 Morbid (severe) obesity with alveolar hypoventilation; K92.1 Melena; I27.20 Pulmonary hypertension, unspecified; D64.9 Anemia, unspecified; E11.65 Type 2 diabetes mellitus with hyperglycemia; E11.22 Type 2 diabetes mellitus with diabetic chronic kidney disease; R91.1 Solitary pulmonary nodule; I08.2 Rheumatic disorders of both aortic and tricuspid valves; D50.9 Iron deficiency anemia, unspecified; E88.09 Other disorders of plasma-protein metabolism, not elsewhere classified; K21.9 Gastro-esophageal reflux disease without esophagitis; K59.00 Constipation, unspecified; N18.9 Chronic kidney disease, unspecified; Z82.49 Family history of ischemic heart disease and other diseases of the circulatory system; Z87.891 Personal history of nicotine dependence; Z99.81 Dependence on supplemental oxygen; Z88.8 Allergy status to other drugs, medicaments and biological substances; Z79.82 Long term (current) use of aspirin; Z79.899 Other long term (current) drug therapy; Z68.33 Body mass index [BMI] 33.0-33.9, adult
CPT/HCPCS: 36415; 36600; 71045; 74018; 78582; 80048; 80061; 80202; 80305; 82375; 82550; 82553; 82728; 82805; 82962; 83540; 83550; 83605; 83735; 83880; 84145; 84443; 84484; 85014; 85018; 85027; 85044; 86850; 86900; 86920; 93005; 93306; 94640; 94660; 96365; 96375; 97162; 97530; 99291; A9558; C1893; J0360; J1200; J1815; J1940; J1956; J2185; J2270; J2920; J2930; J3370; J3475; J7050; J7512; J7611; J7620; J7626; P9016; A4315

== ENCOUNTER 2018-10-13 12:09 | Emergency (ER) | payer OTHER, MEDICAID ==
[~2018-10-13] VITALS: Ht 157.5 cm; Wt 84.0 kg
[~2018-10-13 12:09] MED LIST changes: -ASPI-1159 PO; +ASPI-1393 PO
[2018-10-13 15:54] LABS: CLARITY URINE CLEAR (CLEAR); COLOR URINE YELLOW (YELLOW); KETONES URINE NEGATIVE (NEGATIVE); LEUKOCYTE ESTERASE URINE TRACE (NEGATIVE); NITRITE URINE NEGATIVE (NEGATIVE); OCCULT BLOOD URINE NEGATIVE (NEGATIVE); PROTEIN URINE 1+ (NEGATIVE); UROBILINOGEN URINE 0.2 E.U./dL (0.2-1.0)
[2018-10-13 17:07] VITALS: BP 168/63
== END 2018-10-13 17:11 | disposition home or self-care (01) ==
LOC: ER 12:26
DX: N30.00 Acute cystitis without hematuria (principal); I11.0 Hypertensive heart disease with heart failure; I50.9 Heart failure, unspecified; J44.9 Chronic obstructive pulmonary disease, unspecified; E11.8 Type 2 diabetes mellitus with unspecified complications; Z79.899 Other long term (current) drug therapy; Z88.8 Allergy status to other drugs, medicaments and biological substances; Z90.721 Acquired absence of ovaries, unilateral; Z79.4 Long term (current) use of insulin
CPT/HCPCS: 99283

== ENCOUNTER 2019-02-20 17:24 | Inpatient (IN) | payer OTHER, MEDICAID ==
[~2019-02-20] VITALS: Ht 157.5 cm; Wt 86.6 kg
[2019-02-20] MEDS ORDERED: ASPIRIN 81MG TABLET PO ONE (20:30)
[2019-02-20] MEDS ORDERED: HYDRALAZINE HCL 100MG TABLET PO ONE (20:30)
[2019-02-20] MEDS: NITROGLYCERIN 0.4MG TABLET SL SL PRN ×3 (20:49→22:08)
[2019-02-20 20:50] LABS: CHLORIDE 103 mEq/L (98-107)
[2019-02-20 20:57] LABS: EOSINOPHILS % 5.1 % (0.0-5.0); HEMATOCRIT. 33.6 % (36.0-48.0); HEMOGLOBIN. 11.1 g/dL (12.0-16.0); LYMPHOCYTES % 16.5 % (20.0-50.0); MEAN CORPUSCULAR HEMOGLOBIN 25.7 pg (28.0-32.0); MEAN CORPUSCULAR VOLUME 78.1 fL (81.0-99.0); MEAN PLATELET VOLUME 8.6 fl (7.4-10.4); MONOCYTES % 5.8 % (2.0-8.0); NEUTROPHILS % 71.6 % (40.0-76.0); PLATELET 327 x1000/uL (130-400); RED CELL DISTRIBUTION WIDTH 15.8 % (11.6-14.6)
[2019-02-20] MEDS ORDERED: HYDRALAZINE 20MG/ML VIAL IV ONE (23:00)
[2019-02-20 23:10] LABS: CLARITY URINE CLEAR (CLEAR); COLOR URINE YELLOW (YELLOW); KETONES URINE NEGATIVE (NEGATIVE); LEUKOCYTE ESTERASE URINE TRACE (NEGATIVE); NITRITE URINE NEGATIVE (NEGATIVE); OCCULT BLOOD URINE NEGATIVE (NEGATIVE); PROTEIN URINE 3+ (NEGATIVE); SPECIFIC GRAVITY URINE 1.013 (1.005-1.030); UROBILINOGEN URINE 0.2 E.U./dL (0.2-1.0)
[2019-02-21] MEDS ORDERED: HYDRALAZINE 20MG/ML VIAL IV ONE (01:00)
[2019-02-21] MEDS ORDERED: ACETAMINOPHEN 325MG TABLET PO PRN (10:45)
[2019-02-21] MEDS ORDERED: HYDROCODONE/ACETAMINOPHEN 10/325MG TABLET PO PRN (10:45)
[2019-02-21] MEDS ORDERED: DEXTROSE 50% WATER 50ML SYRINGE IV PRN (10:45)
[2019-02-21] MEDS ORDERED: TEMAZEPAM 15MG CAPSULE PO PRN (10:45)
[2019-02-21 11:47] VITALS: BP 105/87
[2019-02-21 12:18] VITALS: BP 149/71
[2019-02-21] MEDS: INSULIN LISPRO 100 UNITS/ML SUBCUT SCH ×3 (12:19→21:00)
[2019-02-21] MEDS: BLOOD SUGAR DIAGNOSTIC STRIP TEST SCH ×3 (12:19→21:39)
[2019-02-21] MEDS: ASPIRIN 81MG EC TABLET PO SCH (12:35)
[2019-02-21] MEDS: AMLODIPINE 10MG TABLET PO SCH (12:36)
[2019-02-21] MEDS: ENOXAPARIN 40MG/0.4ML SYR SUBCUT SCH (12:37)
[2019-02-21] MEDS: PANTOPRAZOLE 40MG DR TABLET PO SCH (12:39)
[2019-02-21] MEDS ORDERED: HYDRALAZINE HCL 50MG TABLET PO SCH (14:00)
[2019-02-21 16:00] VITALS: BP 158/62
[2019-02-21] MEDS ORDERED: POTASSIUM CHLORIDE 20MEQ TABLET SR PO SCH (16:45)
[2019-02-21] MEDS: DOCUSATE SODIUM 100MG CAPSULE PO SCH (17:15)
[2019-02-21] MEDS: INSULIN NPH (HUMULIN-N) 100 UNITS/ML 3ML VIAL SUBCUT SCH (17:16)
[2019-02-21] MEDS ORDERED: CLONIDINE 0.1MG TABLET PO PRN (18:00)
[2019-02-21] MEDS ORDERED: IPRATROPIUM/ALBUTEROL 0.5-3(2.5)MG/3ML NEB HHN PRN (18:15)
[2019-02-21] MEDS ORDERED: HYDRALAZINE 20MG/ML VIAL IV PRN (18:15)
[2019-02-21 20:00] VITALS: BP 159/66
[2019-02-21] MEDS ORDERED: ATORVASTATIN CALCIUM 20MG TABLET PO SCH (21:00)
[2019-02-21] MEDS: HYDRALAZINE HCL 50MG TABLET PO SCH (21:39)
[2019-02-21] MEDS: BUDESONIDE 0.5MG/2ML NEB HHN SCH (21:43)
[2019-02-22] VITALS (7 sets, daily range): BP systolic 119–198; BP diastolic 56–76
[2019-02-22] MEDS: HYDRALAZINE HCL 50MG TABLET PO SCH ×2 (06:20→14:04)
[2019-02-22 07:18] LABS: CREATINE KINASE MB FRACTION 1.1 ng/mL (0.5-3.6)
[2019-02-22] MEDS: BLOOD SUGAR DIAGNOSTIC STRIP TEST SCH ×3 (08:01→18:01)
[2019-02-22] MEDS: INSULIN LISPRO 100 UNITS/ML SUBCUT SCH ×3 (08:01→18:10)
[2019-02-22] MEDS: PANTOPRAZOLE 40MG DR TABLET PO SCH (08:33)
[2019-02-22] MEDS: ASPIRIN 81MG EC TABLET PO SCH (08:33)
[2019-02-22] MEDS: AMLODIPINE 10MG TABLET PO SCH (08:34)
[2019-02-22] MEDS: DOCUSATE SODIUM 100MG CAPSULE PO SCH ×2 (08:34→16:49)
[2019-02-22] MEDS: ENOXAPARIN 40MG/0.4ML SYR SUBCUT SCH (08:37)
[2019-02-22] MEDS ORDERED: INSULIN NPH (HUMULIN-N) 100 UNITS/ML 3ML VIAL SUBCUT SCH (09:00)
[2019-02-22] MEDS ORDERED: LORATADINE 10MG TABLET PO SCH (09:00)
[2019-02-22] MEDS: BUDESONIDE 0.5MG/2ML NEB HHN SCH (09:21)
[2019-02-22] MEDS ORDERED: ISOS30TA6 MT (14:12)
[2019-02-22] MEDS ORDERED: FLUT1BLS3 INH (14:14)
[2019-02-22] MEDS: INSULIN NPH (HUMULIN-N) 100 UNITS/ML 3ML VIAL SUBCUT SCH (16:51)
[2019-02-23] MEDS ORDERED: FAMOTIDINE 20MG TABLET PO SCH (09:00)
== END 2019-02-22 19:15 | disposition home or self-care (01) | DRG 191 ==
LOC: ER 17:24 → 7WST 23:09 → EDBEDREQTM 23:16 → EDBEDREQ 23:16 → ENRESERV 02-21 06:55
PROVIDERS: ADMIT Internal Medicine; ATTEND Internal Medicine
DX: J44.1 Chronic obstructive pulmonary disease with (acute) exacerbation (principal); I50.32 Chronic diastolic (congestive) heart failure; E11.9 Type 2 diabetes mellitus without complications; E78.00 Pure hypercholesterolemia, unspecified; E87.6 Hypokalemia; I11.0 Hypertensive heart disease with heart failure; J84.10 Pulmonary fibrosis, unspecified; M19.90 Unspecified osteoarthritis, unspecified site; Z88.8 Allergy status to other drugs, medicaments and biological substances; Z79.899 Other long term (current) drug therapy
CPT/HCPCS: 36415; 71045; 80048; 81003; 82553; 82962; 83735; 83880; 84484; 87804; 93005; 94640; 96374; 99291; J0360; J1650; J1815; J7620; J7626

== ENCOUNTER 2020-01-06 14:36 | Emergency (ER) | payer OTHER, MEDICAID ==
[~2020-01-06] VITALS: Ht 167.6 cm; Wt 100.0 kg
[~2020-01-06 14:36] MED LIST changes: -AMLO10TA80 PO; -ASPI-1393 PO; +ASPI-1497 PO; -ATOR20TA65 PO; +DIAZ5TAB4 PO; -DOCU-138 MT; +ERGO2000 PO; +ESCI10TA61 MT; -HYDR-4134 PO; -HYDR-519 PO; +ISOS30TA6 MT
[2020-01-06] MEDS ORDERED: FUROSEMIDE 40MG/4ML VIAL IV ONE (15:15)
[2020-01-06] MEDS ORDERED: ASPIRIN 81MG TABLET PO ONE (15:15)
[2020-01-06] MEDS ORDERED: NITROGLYCERIN 0.4MG TABLET SL SL PRN (15:15)
[2020-01-06 15:52] LABS: BASOPHILS % 0.3 % (0.0-2.0); EOSINOPHILS % 2.8 % (0.0-5.0); HEMATOCRIT. 36.1 % (36.0-48.0); HEMOGLOBIN. 11.5 g/dL (12.0-16.0); LYMPHOCYTES % 8.6 % (20.0-50.0); MEAN CORPUSCULAR VOLUME 81.8 fL (81.0-99.0); MEAN PLATELET VOLUME 9.8 fl (7.4-10.4); NEUTROPHILS % 81.3 % (40.0-76.0); PLATELET 275 x1000/uL (130-400); RED BLOOD CELL COUNT 4.41 mill/uL (4.2-5.4); RED CELL DISTRIBUTION WIDTH 15.2 % (11.6-14.6)
[2020-01-06 15:56] LABS: CHLORIDE 102 mEq/L (98-107)
[2020-01-06 19:47] LABS: CLARITY URINE CLEAR (CLEAR); COLOR URINE YELLOW (YELLOW); KETONES URINE NEGATIVE (NEGATIVE); LEUKOCYTE ESTERASE URINE TRACE (NEGATIVE); NITRITE URINE NEGATIVE (NEGATIVE); OCCULT BLOOD URINE NEGATIVE (NEGATIVE); PH URINE 6.5 (4.5-8.0); PROTEIN URINE 1+ (NEGATIVE); UROBILINOGEN URINE 0.2 E.U./dL (0.2-1.0)
[2020-01-06] MEDS: CEFTRIAXONE 1 G PREMIX 50 ML IV ONE ×2 (20:51→21:22)
[2020-01-06] MEDS ORDERED: NITROFURANTOIN 100MG M/M CAPSULE PO ONE (21:30)
[2020-01-06 22:36] VITALS: BP 171/71
== END 2020-01-06 22:42 | disposition home or self-care (01) ==
LOC: ER 15:01 → CANBEDREQ 23:03
DX: I11.0 Hypertensive heart disease with heart failure (principal); I50.9 Heart failure, unspecified; N17.9 Acute kidney failure, unspecified; N39.0 Urinary tract infection, site not specified; D72.829 Elevated white blood cell count, unspecified; J45.909 Unspecified asthma, uncomplicated; E11.9 Type 2 diabetes mellitus without complications; I48.91 Unspecified atrial fibrillation; F19.10 Other psychoactive substance abuse, uncomplicated; Z79.899 Other long term (current) drug therapy; Z88.8 Allergy status to other drugs, medicaments and biological substances; Z79.82 Long term (current) use of aspirin; Z79.4 Long term (current) use of insulin; Z98.890 Other specified postprocedural states
CPT/HCPCS: 36415; 71045; 80053; 81003; 83880; 84484; 85025; 93005; 93970; 96374; 99285; J0696; J1940

== ENCOUNTER 2021-03-16 14:33 | Inpatient (IN) | payer OTHER, MEDICAID ==
[~2021-03-16] VITALS: Ht 165.1 cm; Wt 78.1 kg
[~2021-03-16 14:33] MED LIST changes: +ESCI-7 MT; -ESCI10TA61 MT; -ISOS30TA6 MT; +ISOS30TA91 MT
[2021-03-16] MEDS ORDERED: SODIUM CHLORIDE 0.9% 1,000 ML IV ONE (15:15)
[2021-03-16 15:37] LABS: BG BASE EXCESS -1.5 mmol/L (-2.0-2.0); BG CARBOXYHEMOGLOBIN 0.2 % (0.5-1.5); BG DEOXYHEMOGLOBIN 8.4 % (0.0-5.0); BG HCO3 ACT 22.7 mmol/L (22.0-26.0); BG METHEMOGLOBIN 0.5 % (0.0-1.5); BG OXYGEN SATURATION 91.5 % (92.0-98.5); BG OXYHEMOGLOBIN 90.9 % (94.0-97.0); BG PCO2 36.5 mmHg (35.0-45.0); BG PH 7.411 (7.350-7.450); BG PO2 62.5 mmHg (75.0-100.0); BG SAMPLE SITE RIGHT BRACHIAL; BG TOTAL HEMOGLOBIN 13.4 g/dL (12.0-18.0); BG VENT MODE ROOM AIR
[2021-03-16 15:57] LABS: HEMATOCRIT. 39.2 % (36.0-48.0); HEMOGLOBIN. 12.6 g/dL (12.0-16.0); MEAN CORPUSCULAR HEMOGLOBIN 25.4 pg (28.0-32.0); MEAN CORPUSCULAR VOLUME 79.3 fL (81.0-99.0); MEAN PLATELET VOLUME 9.7 fl (7.4-10.4); PLATELET 239 x1000/uL (130-400); RED BLOOD CELL COUNT 4.94 mill/uL (4.2-5.4)
[2021-03-16 16:02] LABS: CHLORIDE 103 mEq/L (98-107)
[2021-03-16 16:05] LABS: PROTHROMBIN TIME 10.4 sec (9.6-11.0)
[2021-03-16 16:08] LABS: ETHANOL BLOOD < 10 mg/dL
[2021-03-16 16:10] LABS: BETA HYDROXYBUTYRATE 1.5 mMol/L (0.0-0.3)
[2021-03-16 16:36] LABS: PLATELET ESTIMATE NORMAL
[2021-03-16] MEDS ORDERED: NICARDIPINE 40MG/200ML PREMIX 200 ML IV STA (16:42)
[2021-03-16] MEDS ORDERED: FUROSEMIDE 40MG/4ML VIAL IVP ONE (16:45)
[2021-03-16] MEDS ORDERED: ACYCLOVIR INJ 750 MG in DEXT 5% WATER 125 ML IV SCH (19:30)
[2021-03-16] MEDS ORDERED: CEFTRIAXONE 2 G PREMIX 50 ML IV ONE (19:30)
[2021-03-16] MEDS ORDERED: VANCOMYCIN 1 G PREMIX 200 ML IV SCH (20:15)
[2021-03-16] MEDS: AMPICILLIN 2,000 MG in SODIUM CHLORIDE 0.9% 100 ML IV SCH (20:15)
[2021-03-16] MEDS ORDERED: MIDAZOLAM HCL 2 MG/2 ML VIAL IV ONE (20:30)
[2021-03-16] MEDS: AMLODIPINE 10MG TABLET PO SCH (23:04)
[2021-03-17] MEDS: CLONIDINE 0.1MG TABLET PO PRN ×3 (00:01→20:29)
[2021-03-17 00:07] LABS: CLARITY URINE CLOUDY (CLEAR); COLOR URINE YELLOW (YELLOW); KETONES URINE 1+ (NEGATIVE); LEUKOCYTE ESTERASE URINE TRACE (NEGATIVE); NITRITE URINE NEGATIVE (NEGATIVE); OCCULT BLOOD URINE 2+ (NEGATIVE); PROTEIN URINE 3+ (NEGATIVE); SPECIFIC GRAVITY URINE 1.019 (1.005-1.030); UROBILINOGEN URINE 0.2 E.U./dL (0.2-1.0)
[2021-03-17 00:24] LABS: *BARBITURATES SCREEN URINE NEGATIVE (NEGATIVE); CANNABINOID URINE SCREEN NEGATIVE (NEGATIVE)
[2021-03-17 00:25] LABS: *AMPHETAMINES SCREEN URINE NEGATIVE (NEGATIVE); *BENZODIAZEPINES SCREEN URINE NEGATIVE (NEGATIVE); *COCAINE SCREEN URINE NEGATIVE (NEGATIVE); METHADONE URINE SCREEN NEGATIVE (NEGATIVE); OPIATES URINE SCREEN NEGATIVE (NEGATIVE); PHENCYCLIDINE URINE SCREEN NEGATIVE (NEGATIVE)
[2021-03-17 00:45] VITALS: BP 188/78
[2021-03-17] MEDS ORDERED: DEXTROSE 50% WATER 50ML SYRINGE IV PRN (01:30)
[2021-03-17] MEDS ORDERED: ACETAMINOPHEN 650MG/20.3ML UDC PO PRN (01:30)
[2021-03-17] MEDS ORDERED: CEFTRIAXONE 2 G PREMIX 50 ML IV SCH (01:30)
[2021-03-17] MEDS: BLOOD SUGAR DIAGNOSTIC STRIP TEST SCH ×5 (01:52→19:53)
[2021-03-17] MEDS: INSULIN LISPRO 100 UNITS/ML SUBCUT SCH ×5 (01:57→20:30)
[2021-03-17] MEDS: AMPICILLIN 2,000 MG in SODIUM CHLORIDE 0.9% 100 ML IV SCH ×2 (01:58→17:40)
[2021-03-17] MEDS: SODIUM CHLORIDE 0.45% 1,000 ML IV SCH ×2 (03:13→17:41)
[2021-03-17 03:57] VITALS: BP 158/83
[2021-03-17] MEDS: PANTOPRAZOLE 40MG DR TABLET PO SCH (06:27)
[2021-03-17 08:00] VITALS: BP 175/72
[2021-03-17] MEDS: AMLODIPINE 10MG TABLET PO SCH (09:11)
[2021-03-17 09:44] LABS: BASOPHILS % 0.6 % (0.0-2.0); EOSINOPHILS % 0.1 % (0.0-5.0); HEMATOCRIT. 37.5 % (36.0-48.0); HEMOGLOBIN. 12.2 g/dL (12.0-16.0); LYMPHOCYTES % 16.2 % (20.0-50.0); MEAN CORPUSCULAR HEMOGLOBIN 25.4 pg (28.0-32.0); MEAN CORPUSCULAR VOLUME 78.2 fL (81.0-99.0); MEAN PLATELET VOLUME 9.3 fl (7.4-10.4); MONOCYTES % 10.7 % (2.0-8.0); NEUTROPHILS % 72.4 % (40.0-76.0); PLATELET 262 x1000/uL (130-400); RED BLOOD CELL COUNT 4.79 mill/uL (4.2-5.4); RED CELL DISTRIBUTION WIDTH 14.9 % (11.6-14.6)
[2021-03-17] MEDS ORDERED: HYDRALAZINE 20MG/ML VIAL IV NR (10:00)
[2021-03-17 12:00] VITALS: BP 165/64
[2021-03-17 16:00] VITALS: BP 163/73
[2021-03-17] MEDS ORDERED: ONDANSETRON HCL 4MG/2ML INJ IV PRN (16:00)
[2021-03-17] MEDS ORDERED: BISACODYL 10MG SUPP PR PRN (16:00)
[2021-03-17] MEDS ORDERED: MORPHINE SULFATE 2 MG/ML CPJ (NOT FOR IM USE) IV PRN (16:00)
[2021-03-17] MEDS ORDERED: LORAZEPAM 2MG/ML CPJ IV PRN (16:00)
[2021-03-17] MEDS ORDERED: IPRATROPIUM/ALBUTEROL 0.5-3(2.5)MG/3ML NEB HHN PRN (16:00)
[2021-03-17] MEDS: METHYLPREDNISOLONE SOD SUCC 40 MG/ML VIAL IV SCH (17:40)
[2021-03-17 18:21] LABS: BG DEOXYHEMOGLOBIN 1.8 % (0.0-5.0); BG FRACTION INSPIRED OXYGEN 32; BG HCO3 ACT 23.4 mmol/L (22.0-26.0); BG METHEMOGLOBIN 0.3 % (0.0-1.5); BG OXYGEN SATURATION 98.2 % (92.0-98.5); BG OXYHEMOGLOBIN 97.9 % (94.0-97.0); BG PCO2 38.2 mmHg (35.0-45.0); BG PH 7.405 (7.350-7.450); BG PO2 113.8 mmHg (75.0-100.0); BG SAMPLE SITE RIGHT RADIAL; BG TOTAL HEMOGLOBIN 12.6 g/dL (12.0-18.0); BG VENT MODE NASAL CANNULA
[2021-03-17] MEDS: CEFTRIAXONE 2 G in DEXTROSE 5% WATER 50 ML IV SCH (19:53)
[2021-03-17 20:00] VITALS: BP 174/76
[2021-03-17] MEDS: HEPARIN 5000 UNITS/ML VIAL SUBCUT SCH (20:29)
[2021-03-17] MEDS: IPRATROPIUM/ALBUTEROL 0.5-3(2.5)MG/3ML NEB HHN SCH (21:36)
[2021-03-18] VITALS: BP 150/60
[2021-03-18] MEDS: IPRATROPIUM/ALBUTEROL 0.5-3(2.5)MG/3ML NEB HHN SCH ×2 (01:24→01:27)
[2021-03-18 04:00] VITALS: BP 117/67
[2021-03-18] MEDS: BLOOD SUGAR DIAGNOSTIC STRIP TEST SCH ×5 (06:03→21:21)
[2021-03-18] MEDS: METHYLPREDNISOLONE SOD SUCC 40 MG/ML VIAL IV SCH (06:19)
[2021-03-18] MEDS: SODIUM CHLORIDE 0.45% 1,000 ML IV SCH (06:19)
[2021-03-18] MEDS: AMPICILLIN 2,000 MG in SODIUM CHLORIDE 0.9% 100 ML IV SCH (06:19)
[2021-03-18] MEDS: INSULIN LISPRO 100 UNITS/ML SUBCUT SCH ×4 (06:20→21:21)
[2021-03-18 07:02] LABS: HEMATOCRIT. 37.6 % (36.0-48.0); HEMOGLOBIN. 12.3 g/dL (12.0-16.0); MEAN CORPUSCULAR HEMOGLOBIN 26.2 pg (28.0-32.0); MEAN CORPUSCULAR VOLUME 79.9 fL (81.0-99.0); PLATELET 272 x1000/uL (130-400); RED BLOOD CELL COUNT 4.71 mill/uL (4.2-5.4); RED CELL DISTRIBUTION WIDTH 15.1 % (11.6-14.6)
[2021-03-18 07:20] LABS: VITAMIN B12 SERUM 540 pg/mL (211-911)
[2021-03-18 07:55] VITALS: BP 181/79
[2021-03-18] MEDS: HEPARIN 5000 UNITS/ML VIAL SUBCUT SCH ×2 (08:27→20:14)
[2021-03-18] MEDS: CLONIDINE 0.1MG TABLET PO PRN (08:27)
[2021-03-18] MEDS: PANTOPRAZOLE 40MG DR TABLET PO SCH (08:27)
[2021-03-18] MEDS: AMLODIPINE 10MG TABLET PO SCH (08:27)
[2021-03-18 12:11] VITALS: BP 154/73
[2021-03-18] MEDS: HYDRALAZINE HCL 25MG TABLET PO SCH ×2 (13:19→21:21)
[2021-03-18] MEDS ORDERED: LIDOCAINE HCL/PF 1% 2ML VIAL ONE (14:05)
[2021-03-18 15:20] LABS: BG BASE EXCESS -2.3 mmol/L (-2.0-2.0); BG CARBOXYHEMOGLOBIN 0.3 % (0.5-1.5); BG DEOXYHEMOGLOBIN 6.7 % (0.0-5.0); BG HCO3 ACT 21.5 mmol/L (22.0-26.0); BG METHEMOGLOBIN 0.3 % (0.0-1.5); BG OXYGEN SATURATION 93.3 % (92.0-98.5); BG OXYHEMOGLOBIN 92.7 % (94.0-97.0); BG PCO2 33.7 mmHg (35.0-45.0); BG PH 7.422 (7.350-7.450); BG PO2 65.3 mmHg (75.0-100.0); BG SAMPLE SITE RIGHT RADIAL; BG TOTAL HEMOGLOBIN 11.6 g/dL (12.0-18.0); BG VENT MODE ROOM AIR
[2021-03-18] MEDS: ALBUTEROL 6.7GM HFA INHALER ORI SCH ×3 (15:28→23:49)
[2021-03-18] MEDS: DEXAMETHASONE 10 MG/ML VIAL IV SCH (15:29)
[2021-03-18 15:58] VITALS: BP 109/58
[2021-03-18] MEDS ORDERED: INSULIN GLARGINE UD 100 UNITS/ML SYR SUBCUT NR (16:00)
[2021-03-18 16:28] LABS: PLATELET ESTIMATE NORMAL
[2021-03-18] MEDS: AZITHROMYCIN 500 MG in DEXT 5% WATER 250 ML IV SCH (16:35)
[2021-03-18 20:00] VITALS: BP 159/87
[2021-03-18] MEDS: CEFTRIAXONE 2 G in DEXTROSE 5% WATER 50 ML IV SCH (20:14)
[2021-03-18] MEDS: INSULIN GLARGINE UD 100 UNITS/ML SYR SUBCUT SCH (21:53)
[2021-03-19] VITALS: BP 150/69
[2021-03-19 04:00] VITALS: BP 146/65
[2021-03-19] MEDS: ALBUTEROL 6.7GM HFA INHALER ORI SCH ×3 (05:03→18:00)
[2021-03-19] MEDS: HYDRALAZINE HCL 25MG TABLET PO SCH ×3 (05:03→21:02)
[2021-03-19 07:47] VITALS: BP 170/64
[2021-03-19] MEDS: PANTOPRAZOLE 40MG DR TABLET PO SCH (08:37)
[2021-03-19] MEDS: CLONIDINE 0.1MG TABLET PO PRN (08:37)
[2021-03-19] MEDS: DEXAMETHASONE 10 MG/ML VIAL IV SCH (08:37)
[2021-03-19] MEDS: HEPARIN 5000 UNITS/ML VIAL SUBCUT SCH ×2 (08:37→21:02)
[2021-03-19] MEDS: AMLODIPINE 10MG TABLET PO SCH (08:37)
[2021-03-19] MEDS: BLOOD SUGAR DIAGNOSTIC STRIP TEST SCH ×4 (08:38→21:00)
[2021-03-19] MEDS: INSULIN LISPRO 100 UNITS/ML SUBCUT SCH ×4 (08:39→21:01)
[2021-03-19 08:50] LABS: HEMATOCRIT. 33.6 % (36.0-48.0); HEMOGLOBIN. 11.1 g/dL (12.0-16.0); MEAN CORPUSCULAR HEMOGLOBIN 25.5 pg (28.0-32.0); MEAN CORPUSCULAR VOLUME 77.6 fL (81.0-99.0); MEAN PLATELET VOLUME 10.2 fl (7.4-10.4); PLATELET 261 x1000/uL (130-400); RED BLOOD CELL COUNT 4.33 mill/uL (4.2-5.4); RED CELL DISTRIBUTION WIDTH 14.9 % (11.6-14.6)
[2021-03-19] MEDS: INSULIN GLARGINE UD 100 UNITS/ML SYR SUBCUT SCH ×2 (09:48→21:32)
[2021-03-19 11:45] VITALS: BP 131/56
[2021-03-19 13:13] LABS: PLATELET ESTIMATE NORMAL
[2021-03-19] MEDS: AZITHROMYCIN 500 MG in DEXT 5% WATER 250 ML IV SCH (15:07)
[2021-03-19 15:41] LABS: CLARITY URINE CLEAR (CLEAR); COLOR URINE YELLOW (YELLOW); KETONES URINE NEGATIVE (NEGATIVE); LEUKOCYTE ESTERASE URINE NEGATIVE (NEGATIVE); NITRITE URINE NEGATIVE (NEGATIVE); OCCULT BLOOD URINE NEGATIVE (NEGATIVE); PROTEIN URINE 3+ (NEGATIVE); SPECIFIC GRAVITY URINE 1.018 (1.005-1.030); UROBILINOGEN URINE 0.2 E.U./dL (0.2-1.0)
[2021-03-19 15:49] VITALS: BP 160/58
[2021-03-19] MEDS ORDERED: NALOXONE HCL 0.4MG/ML VIAL IV PRN (17:00)
[2021-03-19 20:00] VITALS: BP 156/72
[2021-03-19] MEDS: CEFTRIAXONE 2 G in DEXTROSE 5% WATER 50 ML IV SCH (21:00)
[2021-03-20] VITALS (7 sets, daily range): BP systolic 150–182; BP diastolic 68–81
[2021-03-20] MEDS: CLONIDINE 0.1MG TABLET PO PRN ×4 (00:12→23:35)
[2021-03-20] MEDS: HYDRALAZINE HCL 25MG TABLET PO SCH ×3 (05:37→21:33)
[2021-03-20] MEDS: ALBUTEROL 6.7GM HFA INHALER ORI SCH ×5 (05:38→23:26)
[2021-03-20] MEDS: BLOOD SUGAR DIAGNOSTIC STRIP TEST SCH ×4 (05:56→21:33)
[2021-03-20] MEDS: PANTOPRAZOLE 40MG DR TABLET PO SCH (06:54)
[2021-03-20 07:32] LABS: HEMATOCRIT. 34.3 % (36.0-48.0); HEMOGLOBIN. 10.9 g/dL (12.0-16.0); MEAN CORPUSCULAR VOLUME 78.4 fL (81.0-99.0); MEAN PLATELET VOLUME 9.8 fl (7.4-10.4); PLATELET 270 x1000/uL (130-400); RED BLOOD CELL COUNT 4.38 mill/uL (4.2-5.4)
[2021-03-20] MEDS: INSULIN LISPRO 100 UNITS/ML SUBCUT SCH ×4 (08:10→21:33)
[2021-03-20] MEDS: DEXAMETHASONE 4MG/ML 1ML VIAL IV SCH (08:36)
[2021-03-20] MEDS: HEPARIN 5000 UNITS/ML VIAL SUBCUT SCH ×3 (08:36→21:32)
[2021-03-20] MEDS: AMLODIPINE 10MG TABLET PO SCH (08:37)
[2021-03-20] MEDS: INSULIN GLARGINE UD 100 UNITS/ML SYR SUBCUT SCH ×2 (11:02→21:32)
[2021-03-20 11:45] LABS: PLATELET ESTIMATE NORMAL
[2021-03-20] MEDS: AZITHROMYCIN 500 MG in DEXT 5% WATER 250 ML IV SCH (15:23)
[2021-03-20] MEDS: CEFTRIAXONE 2 G in DEXTROSE 5% WATER 50 ML IV SCH (21:33)
[2021-03-21] VITALS (7 sets, daily range): BP systolic 156–185; BP diastolic 59–84
[2021-03-21] MEDS: ALBUTEROL 6.7GM HFA INHALER ORI SCH ×4 (06:00→17:07)
[2021-03-21] MEDS: FAMOTIDINE 20MG TABLET PO SCH (06:04)
[2021-03-21] MEDS: HYDRALAZINE HCL 25MG TABLET PO SCH (06:04)
[2021-03-21 07:30] LABS: HEMATOCRIT. 32.9 % (36.0-48.0); HEMOGLOBIN. 10.8 g/dL (12.0-16.0); MEAN CORPUSCULAR HEMOGLOBIN 25.3 pg (28.0-32.0); MEAN CORPUSCULAR VOLUME 76.9 fL (81.0-99.0); MEAN PLATELET VOLUME 9.5 fl (7.4-10.4); PLATELET 294 x1000/uL (130-400); RED BLOOD CELL COUNT 4.28 mill/uL (4.2-5.4); RED CELL DISTRIBUTION WIDTH 14.8 % (11.6-14.6)
[2021-03-21] MEDS: BLOOD SUGAR DIAGNOSTIC STRIP TEST SCH ×4 (07:40→21:00)
[2021-03-21] MEDS: DEXAMETHASONE 4MG/ML 1ML VIAL IV SCH (08:27)
[2021-03-21] MEDS: AMLODIPINE 10MG TABLET PO SCH (08:28)
[2021-03-21] MEDS: INSULIN LISPRO 100 UNITS/ML SUBCUT SCH ×4 (08:28→22:33)
[2021-03-21] MEDS: CLONIDINE 0.1MG TABLET PO PRN (08:29)
[2021-03-21] MEDS: HEPARIN 5000 UNITS/ML VIAL SUBCUT SCH ×2 (08:29→22:30)
[2021-03-21] MEDS: INSULIN GLARGINE UD 100 UNITS/ML SYR SUBCUT SCH ×2 (09:40→22:35)
[2021-03-21] MEDS: HYDRALAZINE HCL 50MG TABLET PO SCH ×2 (12:59→22:32)
[2021-03-21] MEDS ORDERED: FAMO-135 PO (13:57)
[2021-03-21] MEDS ORDERED: DEXA4TAB PO (13:57)
[2021-03-21] MEDS ORDERED: ALBU90AE INH (13:57)
[2021-03-21 14:07] LABS: PLATELET ESTIMATE NORMAL
[2021-03-21] MEDS: AZITHROMYCIN 500 MG in DEXT 5% WATER 250 ML IV SCH (15:06)
[2021-03-21] MEDS: CEFTRIAXONE 2 G in DEXTROSE 5% WATER 50 ML IV SCH (22:30)
[2021-03-22] VITALS: BP 185/81
[2021-03-22] MEDS: ALBUTEROL 6.7GM HFA INHALER ORI SCH ×4 (00:38→17:40)
[2021-03-22] MEDS: CLONIDINE 0.1MG TABLET PO PRN ×2 (00:38→14:32)
[2021-03-22 04:00] VITALS: BP_SYST 174; BP_SYST 97; BP_DIAS 60; BP_DIAS 73
[2021-03-22] MEDS: HYDRALAZINE HCL 50MG TABLET PO SCH (06:49)
[2021-03-22] MEDS: FAMOTIDINE 20MG TABLET PO SCH (06:50)
[2021-03-22 07:01] LABS: HEMATOCRIT. 35.5 % (36.0-48.0); HEMOGLOBIN. 11.6 g/dL (12.0-16.0); MEAN CORPUSCULAR HEMOGLOBIN 25.4 pg (28.0-32.0); MEAN CORPUSCULAR VOLUME 77.7 fL (81.0-99.0); MEAN PLATELET VOLUME 9.5 fl (7.4-10.4); PLATELET 326 x1000/uL (130-400); RED BLOOD CELL COUNT 4.56 mill/uL (4.2-5.4); RED CELL DISTRIBUTION WIDTH 14.8 % (11.6-14.6)
[2021-03-22] MEDS: BLOOD SUGAR DIAGNOSTIC STRIP TEST SCH ×3 (07:40→17:40)
[2021-03-22 08:00] VITALS: BP 178/77
[2021-03-22] MEDS: AMLODIPINE 10MG TABLET PO SCH (08:32)
[2021-03-22] MEDS: DEXAMETHASONE 4MG/ML 1ML VIAL IV SCH (08:33)
[2021-03-22] MEDS: HEPARIN 5000 UNITS/ML VIAL SUBCUT SCH (08:33)
[2021-03-22] MEDS: INSULIN LISPRO 100 UNITS/ML SUBCUT SCH ×3 (08:34→17:47)
[2021-03-22 09:54] LABS: PLATELET ESTIMATE NORMAL
[2021-03-22] MEDS: INSULIN GLARGINE UD 100 UNITS/ML SYR SUBCUT SCH (10:57)
[2021-03-22 11:41] VITALS: BP 146/77
[2021-03-22 12:00] VITALS: BP 174/74
[2021-03-22] MEDS ORDERED: HYDRALAZINE HCL 50MG TABLET PO SCH (14:00)
[2021-03-22] MEDS ORDERED: CLON0.1T MT (14:37)
[2021-03-22] MEDS ORDERED: AMLO10TA4 MT (14:37)
[2021-03-22] MEDS ORDERED: HYDR100T26 MT (14:37)
[2021-03-22] MEDS ORDERED: HYDRALAZINE 20MG/ML VIAL IV PRN (14:45)
[2021-03-22 16:00] VITALS: BP 146/77
[2021-03-22] MEDS ORDERED: CLONIDINE 0.1MG TABLET PO NR (17:45)
[2021-03-22] MEDS: AZITHROMYCIN 500 MG in DEXT 5% WATER 250 ML IV SCH (17:46)
[2021-03-23] MEDS ORDERED: DEXAMETHASONE 4MG/ML 1ML VIAL IV SCH (09:00)
== END 2021-03-22 20:35 | disposition home health service (06) | DRG 177 ==
LOC: ER 14:33 → 6WST 19:58 → EDBEDREQTM 20:01 → EDBEDREQSVC 20:01 → EDBEDREQ 20:01 → EDBEDREQTM 22:03 → EDBEDREQSVC 22:03 → ENRESERV 23:44 → 7WST 03-18 05:45
PROVIDERS: ADMIT Internal Medicine; ATTEND Internal Medicine
DX: U07.1 COVID-19 (principal); J12.82 Pneumonia due to coronavirus disease 2019; G92.8 Other toxic encephalopathy; J44.1 Chronic obstructive pulmonary disease with (acute) exacerbation; N39.0 Urinary tract infection, site not specified; J44.0 Chronic obstructive pulmonary disease with (acute) lower respiratory infection; N17.9 Acute kidney failure, unspecified; I16.1 Hypertensive emergency; E11.22 Type 2 diabetes mellitus with diabetic chronic kidney disease; E11.65 Type 2 diabetes mellitus with hyperglycemia; I12.9 Hypertensive chronic kidney disease with stage 1 through stage 4 chronic kidney disease, or unspecified chronic kidney disease; G93.89 Other specified disorders of brain; N18.32 Chronic kidney disease, stage 3b; E78.5 Hyperlipidemia, unspecified; I65.23 Occlusion and stenosis of bilateral carotid arteries; I27.20 Pulmonary hypertension, unspecified; I48.91 Unspecified atrial fibrillation; Z88.8 Allergy status to other drugs, medicaments and biological substances; Z79.899 Other long term (current) drug therapy; Z79.4 Long term (current) use of insulin; Z79.82 Long term (current) use of aspirin; I69.30 Unspecified sequelae of cerebral infarction; R06.03 Acute respiratory distress
CPT/HCPCS: 36415; 36600; 70544; 70553; 71045; 76770; 80048; 80053; 80061; 80305; 80307; 80320; 80329; 81003; 82010; 82140; 82375; 82607; 82805; 82962; 83036; 83605; 83880; 84443; 84484; 85025; 86140; 87426; 93005; 93880; 93970; 97162; 97530; 99291; J0133; J0290; J0360; J0456; J0696; J1100; J1644; J1815; J1940; J2060; J2250; J2920; J3370; J3490; J7030; J7040; J7050; J7060; U0003; U0005; G0480